=== PATIENT | male | born 1995 | race African-American/Black ===

== ENCOUNTER 2016-12-13 10:31 | Inpatient (IN) | payer SELFPAY ==
[2016-12-13] MEDS ORDERED: HYDROmorphone 1 MG/ML Syringe IVPUSH ONE (10:37)
[2016-12-13] MEDS ORDERED: Metoclopramide 10 MG/2 ML SDV IVPUSH ONE (10:37)
--- NOTE | 2016-12-13 10:44 | EDM.PDOC ---
ED HPI GENERAL MEDICAL PROBLEM - General Chief Complaint: Trauma Stated Complaint: FALL Time Seen by Provider: 12/13/16 10:37 Source of Information: Reports: Patient History Limitations: Reports: No Limitations - History of Present Illness INITIAL COMMENTS - FREE TEXT/NARRATIVE: 21-year-old male of -[place] ancestry is brought to the ED per private vehicle i.e. a suburban. 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 Unable to get out of the vehicle on his own volition. He was therefore aided by several nursing staff and myself. He was seen called in the vehicle. Trauma alert was called. Patient is complaining of severe pain in his right upper extremity and particularly the right wrist area. Planes in his pain in his neck and upper back. For a while he states he could not feel his right upper extremity but he can feel it when he was pinched. Primary exam reveals no obvious open wounds to the head or neck. No injuries to the oropharynx tongue or teeth. C-collar is in place will be left on until C-spine cleared by CT. He has pain over the right before meals joint proximal humerus and an obvious deformity of his distal right radius and ulna. A Colles' fracture. No apparent injuries to the left upper extremity were identified.Abdomen is benign chest shows good air entry equal bilaterally with no obvious palpable rib deformities or subcutaneous emphysema. Benign abdomen exam. Full range of motion knees hips and pelvis is intact. Plan normal saline 150 mils per hour. Dilaudid 1 mg IV and Reglan 10 mg IV initially for pain management. Patient will have CT head neck thoracic and lumbar spine CT chest abdomen pelvis with contrast. X-rays of the right shoulder humerus forearm and wrist to be obtained. Routine labs CBC, CMP Onset: Today Onset Date: 12/13/16 Onset Time: 10:00 Duration: Minutes: Location: Reports: Head, Neck, Chest, Back, Upper Extremity, Right (Shoulder upper humerus and wrist.) Quality: Reports: Throbbing, Other Severity: Severe (Pain with any movement) Improves with: Reports: Rest Worsens with: Reports: Movement Context: Reports: Other (Work-related injury.He fell off a roof approximately 12 feet of ground.). Denies: Activity, Exercise, Lifting, Sick Contact, Trauma Associated Symptoms: Reports: Chest Pain. Denies: Confusion, Cough, cough w sputum, Diaphoresis, Fever/Chills, Headaches, Loss of Appetite, Malaise, Nausea/ Vomiting, Rash, Seizure, Shortness of Breath, Syncope, Weakness Treatments MUSIC MINISTRIES DIRECTOR: Reports: Other (see below) (None.) Bilateral Arm Pain Score (Numeric/FACES): 10 Middle Back Pain Score (Numeric/FACES): 10 - Related Data Allergies Allergy/AdvReac Type Severity Reaction Status Date / Time No Known Allergies Allergy Verified 12/13/16 11:23 Home Meds: Home Meds . [No Known Home Meds] 12/13/16 [History] Past Medical History Respiratory History: Reports: Asthma Social & Family History - Living Situation & Occupation Occupation: Employed Review of Systems - Review of Systems Review Of Systems: See Below Constitutional: Denies: Chills, Diaphoresis, Fever, Weakness, Other Eyes: Reports: No Symptoms Ears: Reports: No Symptoms Nose: Reports: No Symptoms Mouth/Throat: Reports: No Symptoms Respiratory: Reports: No Symptoms Cardiovascular: Reports: No Symptoms GI/Abdominal: Reports: No Symptoms Genitourinary: Reports: No Symptoms Musculoskeletal: Reports: Neck Pain, Back Pain (Thoracic back pain), Other ( Severe pain right wrist mild pain right shoulder) Skin: Reports: No Symptoms Neurological: Reports: Headache Psychiatric: Reports: No Symptoms ED EXAM, GENERAL - Physical Exam Exam: See Below Exam Limited By: Uncooperative (Uncooperative due to the severity of the pain that he's experiencing.) General Appearance: Alert, Moderate Distress Eye Exam: Bilateral Eye: Normal Inspection (Note face has several areas of sawdust attached to it.) Throat/Mouth: Normal Inspection, Normal Lips, Normal Teeth, Normal Oropharynx, Other Head: Atraumatic (No evidence of bite injury to the tongue.), Normocephalic, Other (Pain to palpation of the exceptional scalp without palpable hematoma.) Neck: Other (C-collar was placed in the vehicle before he brought him into the ED and therefore was not examined. He will remain in place until CT CT clears his spine.) Respiratory/Chest: Lungs Clear, Normal Breath Sounds (Mild tachypnea), Respiratory Distress, Other (No palpable deformities of his ribs sternum. There is no subcutaneous emphysema). No: Crackles, Rales, Rhonchi, Retractions Cardiovascular: Normal Peripheral Pulses, Regular Rate, Rhythm, No Edema, No Gallop, No Murmur Peripheral Pulses: 3+: Radial (L), Radial (R), Posterior Tibial (L), Posterior Tibial (R), Dorsalis Pedis (L), Dorsalis Pedis (R) GI/Abdominal: Soft, Non-Tender, No Organomegaly, No Distention, No Abnormal Bruit, No Mass Back Exam: Normal Inspection, Decreased Range of Motion, Other (Pain in the mid and upper thoracic spine.). No: Full Range of Motion, CVA Tenderness (L), CVA Tenderness (R) Extremities: Other (Obvious deformity of his distal right radius and ulna i.e. Colles' fracture. Has some pain at the distal left wrist as well. But no obvious deformity. Pain on palpation proximal right humerus and before meals joint area. Has full unopposed range of motion of both hips knees and ankles with no lower extremity injuries evident.) Neurological: Alert, Oriented, CN II-XII Intact, Normal Cognition, Other ( Patient stood outside of the vehicle and did sit on the gurney.) Psychiatric: Anxious, Other Skin Exam: Warm, Dry (In a lot of pain.), Intact, Normal Color, No Rash ED TRAUMA PROCEDURES - Joint Reduction Site: Other (Right wrist) Sedation: Conscious Cedation (HOUSEKEEPING DIRECTOR providing propofol for sedation.) Local Anesthesia - Bupivicaine (Marcaine): 0.5% Plain (8 mils instilled to provide hematoma block.) Local Anesthetic Volume: Other (80 mL) Pre-Procedure NV Status: Normal Post-Procedure NV Status: Normal Technique: Traction/Counter Traction (Utilize the Luxembourg[place] fingertrap to provide traction and ability to reduce the fracture to length.) Number of Attempts: 2 Post-Reduction Imaging: Acceptably Reduced Joint Reduction Complications: No Course - Vital Signs Last Recorded V/S: Last Vital Signs Temp 36.2 C 12/13/16 11:23 Pulse 61 12/13/16 12:29 Resp 17 12/13/16 13:07 BP 130/78 12/13/16 12:29 Pulse Ox 97 12/13/16 13:07 - Orders/Labs/Meds Orders: Active Orders 24 hr Category Date Time Status Forearm 2V Rt [CR] Stat Exams 12/13/16 10:43 Taken Hand Comp Min 3V Rt [CR] Stat Exams 12/13/16 13:47 Taken Humerus Rt [CR] Stat Exams 12/13/16 10:43 Taken Shoulder Comp Rt [CR] Stat Exams 12/13/16 10:41 Taken Wrist 2V Rt [CR] Stat Exams 12/13/16 13:46 Taken Wrist Comp Min 3V Lt [CR] Stat Exams 12/13/16 11:02 Taken Wrist Comp Min 3V Rt [CR] Stat Exams 12/13/16 10:42 Taken ABO/RH TYPE [BBK] Stat Lab 12/13/16 10:37 Results PATIENT RETYPE [BBK] Stat Lab 12/13/16 10:37 Results URINALYSIS W/MICROSCOPIC [UA W/MICROSCOPIC] [URIN] Stat Lab 12/13/16 10:38 Uncollected Sodium Chloride 0.9% [Normal Saline] 1,000 ml Med 12/13/16 10:45 Active IV ASDIRECTED Sodium Chloride 0.9% [Saline Flush] Med 12/13/16 10:49 Active 10 ml FLUSH ONETIME PRN Medication Orders Sodium Chloride (Normal Saline) 1,000 mls @ 150 mls/hr IV ASDIRECTED HOLLY Last Admin: 12/13/16 10:47 Dose: 150 mls/hr Sodium Chloride (Saline Flush) 10 ml FLUSH ONETIME PRN PRN Reason: IV FLUSH Last Admin: 12/13/16 11:04 Dose: 10 ml Labs: Laboratory Tests 12/13/16 12/13/16 12/13/16 Range/Units 10:37 10:37 10:37 WBC 11.19 H (4.23-9.07) K/mm3 RBC 4.73 (4.63-6.08) M/mm3 Hgb 14.7 (13.7-17.5) gm/L Hct 42.5 (40.1-51.0) % MCV 89.9 (79.0-92.2) fl MCH 31.1 (25.7-32.2) pg MCHC 34.6 (32.2-35.5) g/dl RDW Std Deviation 41.7 (35.1-43.9) fL Plt Count 293 (163-337) K/mm3 MPV 10.5 (9.4-12.3) fl Neutrophils % (Manual) 47 (40-60) % Band Neutrophils % 1 (0-10) % Lymphocytes % (Manual) 46 H (20-40) % Atypical Lymphs % 2 % Monocytes % (Manual) 4 (2-10) % Eosinophils % (Manual) 0 L (0.8-7.0) % Basophils % (Manual) 0 L (0.2-1.2) Platelet Estimate Adequate RBC Morph Comment Normal Sodium 140 (136-145) mEq/L Potassium 3.0 L (3.5-5.1) mEq/L Chloride 104 (98-107) mEq/L Carbon Dioxide 26 (21-32) mEq/L Anion Gap 13.0 (5-15) BUN 18 (7-18) mg/dL Creatinine 1.3 (0.7-1.3) mg/dL Est Cr Clr Drug Dosing 85.05 mL/min Estimated GFR (MDRD) > 60 (>60) mL/min BUN/Creatinine Ratio 13.8 L (14-18) Glucose 149 H (74-106) mg/dL Calcium 8.5 (8.5-10.1) mg/dL Total Bilirubin 0.6 (0.2-1.0) mg/dL AST 107 H (15-37) U/L ALT 69 H (16-63) U/L Alkaline Phosphatase 80 (46-116) U/L Total Protein 7.7 (6.4-8.2) g/dl Albumin 4.0 (3.4-5.0) g/dl Globulin 3.7 gm/dL Albumin/Globulin Ratio 1.1 (1-2) Blood Type O POSITIVE Meds: Medications Generic Name Dose Route Start Last Admin Trade Name Freq PRN Reason Stop Dose Admin Sodium Chloride 1,000 mls @ 150 mls/hr 12/13/16 10:45 12/13/16 10:47 Normal Saline IV 150 mls/hr ASDIRECTED HOLLY Administration Sodium Chloride 10 ml 12/13/16 10:49 12/13/16 11:04 Saline Flush FLUSH 10 ml ONETIME PRN Administration IV FLUSH Discontinued Medications Generic Name Dose Route Start Last Admin Trade Name Freq PRN Reason Stop Dose Admin Bupivacaine HCl 10 ml 12/13/16 13:11 12/13/16 13:55 Sensorcaine-Mpf 0.5% INJECT 12/13/16 13:12 10 ml ONETIME ONE Administration Fentanyl Confirm 12/13/16 13:38 Sublimaze Administered 12/13/16 13:39 Dose 250 mcg .ROUTE .STK-MED ONE Hydromorphone HCl 1 mg 12/13/16 10:37 12/13/16 10:46 Dilaudid IVPUSH 12/13/16 10:38 1 mg ONETIME ONE Administration Hydromorphone HCl 0.5 mg 12/13/16 11:30 12/13/16 11:40 Dilaudid IVPUSH 12/13/16 11:31 0.5 mg ONETIME ONE Administration Hydromorphone HCl 0.5 mg 12/13/16 12:20 12/13/16 12:27 Dilaudid IVPUSH 12/13/16 12:21 0.5 mg ONETIME ONE Administration Iopamidol 125 ml 12/13/16 10:49 12/13/16 11:04 Isovue-300 (61%) IVPUSH 12/13/16 10:50 125 ml ONETIME ONE Administration Metoclopramide HCl 10 mg 12/13/16 10:37 12/13/16 10:44 Reglan IVPUSH 12/13/16 10:38 10 mg ONETIME ONE Administration Midazolam HCl Confirm 12/13/16 13:42 Versed 1 Mg/Ml Administered 12/13/16 13:43 Dose 2 mg .ROUTE .STK-MED ONE - Radiology Interpretation Free Text/Narrative:: 21 year old male involved in work-related injury this morning. He slipped and fell off a roof and fell about 12 feet to the ground. It's unclear if there was a loss of consciousness. Patient is somewhat uncooperative in terms of relating information because of the pain he is experiencing. He has some pain at palpation of his occipital scalp c-collar was placed in the vehicle before removed him from the vehicle. Trauma alert was called. He has obvious deformity of the distal right radius and ulna. Some pain in his right before meals joint and proximal right humerus. Some pain in his left wrist. No obvious deformities or injuries to the chest abdomen pelvis or lower extremities. Plan CT head cervical spine thoracic spine lumbar spine chest abdomen pelvis with contrast. Routine labs are collected. And Dilaudid 1 mg IV for pain relief with Reglan 10 mg IV as well. - Re-Assessments/Exams Free Text/Narrative Re-Assessment/Exam: 12/13/16 11:24 CT head is within normal limits showing no fractures or intracranial bleeding or mass effect. He does have fracture of the right maxillary sinus in 2 locations. There is fluid and mucosal thickening seen in both maxillary sinuses worse on the right side. There is a mildly displaced fracture within the posterior lateral wall of the right maxillary sinus in inward displacement of the fractured fragment. Fracture also noted within the anterior aspect of the inferior wall of the right maxillary sinus. CT cervical spine thoracic spine and lumbar spine are all normal without any fractures or deformities. CT chest reveals minimal pneumothoraces at the apices. These would be less than 1% never seen on chest x-ray. CT of the abdomen as radiologist identified possible small tear along the falx inferiorly suggesting a grade 1's laceration of the liver. The remainder of the CT of the abdomen and pelvis was within normal limits. Awaiting long bone x-rays. C-collar will be removed at this time. 12/13/16 11:35 x-rays of his right wrist reveal a comminuted shortened fracture of the distal radius and avulsion of the ulnar styloid process. This will require surgical management. X-rays of the remainder the forearm the right humerus and shoulder appear normal. Awaiting views of his left wrist. 12/13/16 12:00: X-rays of the left wrist also reveal a undisplaced fracture across the distal left radius. Small avulsion fracture off the ulnar styloid process as well. Case discussed with Dr. Rajani parnell who will attend him in the ED from the department of orthopedic surgery. Case discussed with trauma surgeon Dr. Buchanan patient is to be admitted to the intensive care unit for close observation continuous pulse oximetry etc. Question is whether he is going to require general surgery to reduce his fractured right wrist. He therefore is at slight risk of developing further problems with pneumothorax with positive pressure ventilation. 12/13/16 12:[address] Neal orthopedic surgeon. Left wrist needs a volar splint the right we will try and reduce with knees fingertrap and weights. This may provide a nonoperative intervention for him. Otherwise Dr. Neal will see him in clinic in a week and could operate at that time if so needed. 12/13/16 13:07 patient to be admitted to the intensive care unit under the care of Dr. Buchanan. Bridge orders were written. He will need a referral to maxillofacial surgeon such as Dr. Shon Gandhi at [facility] in [place] in about a week's time to address his right maxillary fractures. I suspect a nonoperative intervention will likely likely be the option. There is one piece of the anterior wall that is shooting into the sinus. I will call HOUSEKEEPING DIRECTOR to help facilitate reduction of his right wrist with aid of the chin [place]bourgish fingertrap. I will do a hematoma block using Marcaine 0.5% to his right wrist. 12/13/16 13:49 HOUSEKEEPING DIRECTOR provided propofol for conscious sedation. Utilization of hematoma block using 0.5 more percent Marcaine 8 mils instilled both volarly and dorsally in total. Trap machine utilized to provide weight and alignment for reduction. Placed in volar Ortho-Glass splint following the procedure and wrapped with 3 inch and 4 inch Asher wrap. Postreduction films to be obtained of the wrist and his dorsal hand as there is increasing swelling in the distribution of the third metacarpal since his arrival here. 12/13/16 13:25: Postreduction films of the right wrist reveal a return to length and nearly anatomical alignment of the right distal radius. X-ray of the hand was done to rule out a metacarpal fracture and none was found. As the patient recovers from anesthetic he will be admitted to the intensive care unit. Dr. Neal did stop by and indicated he would see him in clinic in a week's time. He felt he would be more suitable at that time if he needed intraoperative intervention. Bridge orders written for admission to the intensive care unit and Dr. Buchanan will see him later this afternoon in the ICU. 12/13/16 14:50 in regards to his right maxillary facial sinus fractures he should be placed on oral antibiotic such as cephalexin for the next week to 10 days until follow-up with maxillofacial surgeon to prevent secondary infection in the bone. Was given a gram of Ancef upon admission to the ICU Departure - Departure Time of Disposition: 14:46 Disposition: Admitted As Inpatient 64 Condition: Fair Clinical Impression: Bilateral pneumothoraces Colles' fracture of right radius, initial encounter for closed fracture Qualifiers: Encounter type: initial encounter Qualified Code(s): S52.531A - Colles' fracture of right radius, initial encounter for closed fracture Fracture of radius, distal, left, closed Qualifiers: Encounter type: initial encounter Fracture morphology: other extra-articular Qualified Code(s): S52.552A - Other extraarticular fracture of lower end of left radius, initial encounter for closed fracture Contusion of liver, closed Qualifiers: Encounter type: initial encounter Qualified Code(s): S36.112A - Contusion of liver, initial encounter Closed fracture of maxillary sinus Qualifiers: Encounter type: initial encounter Qualified Code(s): S02.401A - Maxillary fracture, unspecified side, initial encounter for closed fracture - Discharge Information - My Orders Last 24 Hours: My Active Orders 12/13/16 10:37 ABO/RH TYPE [BBK] Stat PATIENT RETYPE [BBK] Stat 12/13/16 10:38 URINALYSIS W/MICROSCOPIC [UA W/MICROSCOPIC] [URIN] Stat 12/13/16 10:41 Shoulder Comp Rt [CR] Stat 12/13/16 10:42 Wrist Comp Min 3V Rt [CR] Stat 12/13/16 10:43 Forearm 2V Rt [CR] Stat Humerus Rt [CR] Stat 12/13/16 10:45 Sodium Chloride 0.9% [Normal Saline] 1,000 ml IV ASDIRECTED 12/13/16 10:49 Sodium Chloride 0.9% [Saline Flush] 10 ml FLUSH ONETIME PRN 12/13/16 11:02 Wrist Comp Min 3V Lt [CR] Stat 12/13/16 13:46 Wrist 2V Rt [CR] Stat 12/13/16 13:47 Hand Comp Min 3V Rt [CR] Stat - Assessment/Plan Last 24 Hours: My Active Orders 12/13/16 10:37 ABO/RH TYPE [BBK] Stat PATIENT RETYPE [BBK] Stat 12/13/16 10:38 URINALYSIS W/MICROSCOPIC [UA W/MICROSCOPIC] [URIN] Stat 12/13/16 10:41 Shoulder Comp Rt [CR] Stat 12/13/16 10:42 Wrist Comp Min 3V Rt [CR] Stat 12/13/16 10:43 Forearm 2V Rt [CR] Stat Humerus Rt [CR] Stat 12/13/16 10:45 Sodium Chloride 0.9% [Normal Saline] 1,000 ml IV ASDIRECTED 12/13/16 10:49 Sodium Chloride 0.9% [Saline Flush] 10 ml FLUSH ONETIME PRN 12/13/16 11:02 Wrist Comp Min 3V Lt [CR] Stat 12/13/16 13:46 Wrist 2V Rt [CR] Stat 12/13/16 13:47 Hand Comp Min 3V Rt [CR] Stat
[2016-12-13] MEDS ORDERED: Sodium Chloride 0.9% 1,000 ML IV SCH ×2 (10:45→16:00)
[2016-12-13] MEDS ORDERED: Iopamidol 612 MG/ML 150 ML Bottle IVPUSH ONE (10:49)
[2016-12-13] MEDS ORDERED: Sodium Chloride 0.9% 10 ML Syringe FLUSH PRN (10:49)
--- NOTE | 2016-12-13 11:26 | CT ---
Head CT Technique: Multiple axial sections were obtained through the brain. Intravenous contrast was not utilized. Comparison: No previous study. Findings: Ventricles along the basal cisterns and sulci over the convexities are within normal limits for the patient's age. No abnormal parenchymal densities are seen. No evidence of intracranial hemorrhage. No midline shift or mass effect is seen. Bone window settings were reviewed which shows a mildly displaced fracture within the posterolateral wall of the right maxillary sinus with inward displacement of a fracture fragment. Fluid and mucosal thickening is seen within the right maxillary sinus. Small amount of mucosal thickening and fluid is seen within the left maxillary sinus. Fracture also noted within the anterior aspect of the inferior wall of the right maxillary sinus. No additional fracture is appreciated within the visualized facial bones. Mild mucosal thickening is noted within the ethmoid sinuses. No acute calvarial abnormality is appreciated. Impression: 1. Fracture of the right maxillary sinus in 2 locations. Fluid and mucosal thickening is seen within both maxillary sinuses which is worse on the right side. Minimal mucosal thickening is seen within the ethmoid sinuses. 2. No acute calvarial abnormality is seen. No acute intracranial abnormality is seen. Diagnostic code #3
[2016-12-13] MEDS ORDERED: HYDROmorphone 0.5 MG/0.5 ML Syringe IVPUSH ONE ×2 (11:30→12:20)
--- NOTE | 2016-12-13 11:30 | CT ---
CT cervical spine Technique: Multiple axial sections were obtained from above C1 inferiorly to the bottom of T2. Reconstructed sagittal and coronal images were reviewed. Findings: Vertebral body heights and disc spaces are maintained. Mastoid sinuses and middle ear cavities are clear. Posterior skull base is intact. Vertebral bodies and posterior arches show no fracture. No bony central or bony neural foraminal is seen. No abnormal subluxation is seen on the reconstructed sagittal image. Minimal calcification is seen off the anterior and inferior endplate of C5 believed to represent minimal detached spur which is likely chronic. Impression: 1. Incidental finding. Nothing acute is appreciated on CT study of the cervical spine. Diagnostic code #2
--- NOTE | 2016-12-13 11:53 | CT ---
CT thoracic spine Technique: Multiple axial sections through the thoracic spine were obtained. Reconstructed sagittal and coronal images were reviewed. Findings: Vertebral body heights and disc spaces are maintained. Vertebral bodies and posterior arches are intact. No fracture is seen. No bony central or bony neural foraminal stenosis is seen. Visualized portions of the thoracic spine appear unremarkable. Impression: 1. Nothing acute is identified on CT study of the thoracic spine. Diagnostic code #1
--- NOTE | 2016-12-13 11:53 | CT ---
CT chest Technique: Multiple axial sections through the chest were obtained. Intravenous contrast was utilized. Artifact noted from the patient's arms not being above the field of view. No pericardial thickening is seen. Soft tissue density noted within the superior mediastinum believed to represent normal residual thymic tissue. No mediastinal or hilar abnormalities are appreciated. Minimal pleural air seen along the right lateral chest possibly due to very minimal pneumothorax. No rib fracture is appreciated. Slight parenchymal density noted near the minor fissure on the right side either due to slight pulmonary contusion or atelectasis. Lungs otherwise are clear. Impression: 1. Possible minimal pneumothorax within the right mid and lateral chest. 2. Slight increased density within the right middle lobe near the minor fissure either due to minimal pulmonary contusion or atelectasis. 3. No additional abnormality is identified on CT study of the chest. Details are diminished due to the patient's arms being not raised. Diagnostic code #5 CT abdomen and pelvis Technique: Multiple axial sections were obtained from above the dome of the diaphragm inferiorly through the pubic symphysis. Intravenous contrast was utilized. No oral contrast has been given. Comparison: No previous study. Findings: Artifact is noted from the patient's arms within the upper abdomen. Vague low density area is seen near the ligamentum teres fissure. Difficult to exclude very minimal liver injury (grade 1). Spleen appears within normal limits. Adrenal glands show no nodule. Kidneys show symmetric contrast enhancement without discrete abnormality. Pancreas appears within normal limits. Aorta shows no aneurysmal dilatation. No retroperitoneal adenopathy or mesenteric abnormalities are seen. No pelvic mass or adenopathy is seen. Delayed images were obtained through the bladder which shows contrast within the distal ureters and bladder. No contrast extravasation is seen. Bone window settings were reviewed which shows no discrete pelvic fracture. Impression: 1. Detail is diminished due to the patient's arms affecting mostly the upper abdomen. 2. Vague low density area near the ligamentum teres fissure possibly due to minimal liver injury (grade 1). 3. No additional abnormality is definitely appreciated. Diagnostic code #2
--- NOTE | 2016-12-13 12:43 | CT ---
CT lumbar spine Technique: Multiple axial sections were obtained through the lumbar spine. Reconstructed sagittal and coronal images were reviewed. Findings: Vertebral body heights and disc spaces are maintained. No fracture is identified. No bony central or bony neural foraminal stenosis is seen. No traumatic disc herniation is seen. Impression: 1. No abnormality is identified on CT study of the lumbar spine. Diagnostic code #1
[2016-12-13] MEDS ORDERED: Propofol 200 MG/20 ML SDV ONE (13:00)
--- NOTE | 2016-12-13 13:03 | PCM.PREANE ---
Preanesthetic Assessment - Procedure Proposed Procedure: Bilateral Wrist reductions in ER - Anesthesia/Transfusion/Family Hx Anesthesia History: No Prior Anesthesia Family History of Anesthesia Reaction: No Transfusion History: No Prior Transfusion(s) - Review of Systems General: Chills (since accident) Pulmonary: No Symptoms Cardiovascular: No Symptoms Gastrointestinal: No symptoms Neurological: No Symptoms Other: Reports: Easy Bleeding (easy bleeding of nose after too much sun exposure ) - Physical Assessment NPO Status Date: 12/13/16 NPO Status Time: 06:45 O2 Sat by Pulse Oximetry: 97 Respiratory Rate: 17 Vital Signs: Last Vital Signs Temp 36.2 C 12/13/16 11:23 Pulse 61 12/13/16 12:29 Resp 17 12/13/16 12:29 BP 130/78 12/13/16 12:29 Pulse Ox 97 12/13/16 12:29 Height: 1.8 m Weight: 68.039 kg ASA Class: 2E Mental Status: Other (oriented x 3 but sedate after pain meds) Airway Class: Mallampati = 3 Dentition: Reports: Normal Dentition Thyro-Mental Finger Breadths: 3 Mouth Opening Finger Breadths: 2 ROM/Head Extension: Full Lungs: Clear to auscultation, Normal respiratory effort Cardiovascular: Regular Rate, Regular Rhythm, No Murmurs - Lab Values: Laboratory Last Values WBC 11.19 K/mm3 (4.23-9.07) H 12/13/16 10:37 RBC 4.73 M/mm3 (4.63-6.08) 12/13/16 10:37 Hgb 14.7 gm/L (13.7-17.5) 12/13/16 10:37 Hct 42.5 % (40.1-51.0) 12/13/16 10:37 MCV 89.9 fl (79.0-92.2) 12/13/16 10:37 MCH 31.1 pg (25.7-32.2) 12/13/16 10:37 MCHC 34.6 g/dl (32.2-35.5) 12/13/16 10:37 RDW Std Deviation 41.7 fL (35.1-43.9) 12/13/16 10:37 Plt Count 293 K/mm3 (163-337) 12/13/16 10:37 MPV 10.5 fl (9.4-12.3) 12/13/16 10:37 Neutrophils % (Manual) 47 % (40-60) 12/13/16 10:37 Band Neutrophils % 1 % (0-10) 12/13/16 10:37 Lymphocytes % (Manual) 46 % (20-40) H 12/13/16 10:37 Atypical Lymphs % 2 % 12/13/16 10:37 Monocytes % (Manual) 4 % (2-10) 12/13/16 10:37 Eosinophils % (Manual) 0 % (0.8-7.0) L 12/13/16 10:37 Basophils % (Manual) 0 (0.2-1.2) L 12/13/16 10:37 Platelet Estimate Adequate 12/13/16 10:37 RBC Morph Comment Normal 12/13/16 10:37 Sodium 140 mEq/L (136-145) 12/13/16 10:37 Potassium 3.0 mEq/L (3.5-5.1) L 12/13/16 10:37 Chloride 104 mEq/L (98-107) 12/13/16 10:37 Carbon Dioxide 26 mEq/L (21-32) 12/13/16 10:37 Anion Gap 13.0 (5-15) 12/13/16 10:37 BUN 18 mg/dL (7-18) 12/13/16 10:37 Creatinine 1.3 mg/dL (0.7-1.3) 12/13/16 10:37 Est Cr Clr Drug Dosing 85.05 mL/min 12/13/16 10:37 Estimated GFR (MDRD) > 60 mL/min (>60) 12/13/16 10:37 BUN/Creatinine Ratio 13.8 (14-18) L 12/13/16 10:37 Glucose 149 mg/dL (74-106) H 12/13/16 10:37 Calcium 8.5 mg/dL (8.5-10.1) 12/13/16 10:37 Total Bilirubin 0.6 mg/dL (0.2-1.0) 12/13/16 10:37 AST 107 U/L (15-37) H 12/13/16 10:37 ALT 69 U/L (16-63) H 12/13/16 10:37 Alkaline Phosphatase 80 U/L (46-116) 12/13/16 10:37 Total Protein 7.7 g/dl (6.4-8.2) 12/13/16 10:37 Albumin 4.0 g/dl (3.4-5.0) 12/13/16 10:37 Globulin 3.7 gm/dL 12/13/16 10:37 Albumin/Globulin Ratio 1.1 (1-2) 12/13/16 10:37 Blood Type O POSITIVE 12/13/16 10:37 - Allergies Allergies/Adverse Reactions: Allergies Allergy/AdvReac Type Severity Reaction Status Date / Time No Known Allergies Allergy Verified 12/13/16 11:23 - Acknowledgements Anesthesia Type Planned: MAC Pt an Appropriate Candidate for the Planned Anesthesia: Yes Alternatives and Risks of Anesthesia Discussed w Pt/Guardian: Yes Pt/Guardian Understands and Agrees with Anesthesia Plan: Yes PreAnesthesia Questionnaire Respiratory History: Reports: Asthma - SUBSTANCE USE Smoking Status *Q: Never Smoker Tobacco Use Within Last Twelve Months: No Second Hand Smoke Exposure: No Days Per Week of Alcohol Use: 0 Recreational Drug Use History: No - HOME MEDS Home Medications: Home Meds . [No Known Home Meds] 12/13/16 [History] - CURRENT (IN HOUSE) MEDS Current Meds: Current Medications Sodium Chloride (Normal Saline) 1,000 mls @ 150 mls/hr IV ASDIRECTED [facility] Last Admin: 12/13/16 10:47 Dose: 150 mls/hr Sodium Chloride (Saline Flush) 10 ml FLUSH ONETIME PRN PRN Reason: IV FLUSH Last Admin: 12/13/16 11:04 Dose: 10 ml Discontinued Medications Hydromorphone HCl (Dilaudid) 1 mg IVPUSH ONETIME ONE Stop: 12/13/16 10:38 Last Admin: 12/13/16 10:46 Dose: 1 mg Hydromorphone HCl (Dilaudid) 0.5 mg IVPUSH ONETIME ONE Stop: 12/13/16 11:31 Last Admin: 12/13/16 11:40 Dose: 0.5 mg Hydromorphone HCl (Dilaudid) 0.5 mg IVPUSH ONETIME ONE Stop: 12/13/16 12:21 Last Admin: 12/13/16 12:27 Dose: 0.5 mg Iopamidol (Isovue-300 (61%)) 125 ml IVPUSH ONETIME ONE Stop: 12/13/16 10:50 Last Admin: 12/13/16 11:04 Dose: 125 ml Metoclopramide HCl (Reglan) 10 mg IVPUSH ONETIME ONE Stop: 12/13/16 10:38 Last Admin: 12/13/16 10:44 Dose: 10 mg
[2016-12-13] MEDS ORDERED: Bupivacaine 0.5% 10 ML SDV INJECT ONE (13:11)
[2016-12-13] MEDS ORDERED: fentaNYL 250 MCG/5 ML SDV ONE (13:38)
[2016-12-13] MEDS ORDERED: Midazolam 1 MG/ML 2 ML SDV ONE (13:42)
[2016-12-13] MEDS ORDERED: ceFAZolin 1 GM in Premix Bag 1 BAG IV ONE ×2 (14:50→17:00)
--- NOTE | 2016-12-13 15:09 | PCM.HP ---
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 He fell approximately 12 feet onto concrete without LOC. He was brought by rescue to the emergency room hemodynamically stable and placed in a trauma alert status. He was seen and evaluated by ED staff. Imaging was performed. He was found to have a right maxillary sinus fracture along with a minimal right-sided pneumothorax with a possible right middle lobe contusion. There may be a grade 1 hepatic injury. He also had bilateral wrist injuries as well. Orthopedic surgery and I were consulted. Currently he is slightly sedated after having IV propofol given for his close reduction and cast placement of both wrists. Nevertheless he notes lower neck pain. Right facial pain and mild to moderate wrist pain. He denies shortness of breath as well as abdominal pain. He did say he felt slightly chilled. Onset of Symptoms: Reports: Today Bilateral Arm Pain Score (Numeric/FACES): 10 Middle Back Pain Score (Numeric/FACES): 10 - Related Data Allergies/Adverse Reactions: Allergies Allergy/AdvReac Type Severity Reaction Status Date / Time No Known Allergies Allergy Verified 12/13/16 11:23 Home Medications: Home Meds . [No Known Home Meds] 12/13/16 [History] Past Medical History Respiratory History: Reports: Asthma Musculoskeletal History: Reports: Other (See Below) (Prior arm and lower extremity fractures.) Social & Family History - Tobacco Use Smoking Status *Q: Never Smoker Second Hand Smoke Exposure: No - Caffeine Use Caffeine Use: Reports: None - Alcohol Use Days Per Week of Alcohol Use: 0 - Recreational Drug Use Recreational Drug Use: No - Living Situation & Occupation Living situation: Reports: Occupation: Employed H&P Review of Systems - Review of Systems: Review Of Systems: See Below General: Reports: Other (Right facial pain) Musculoskeletal: Reports: Neck Pain, Arm Pain, Joint Pain Exam - Exam Exam: See Below - Vital Signs Vital Signs: Last Vital Signs Temp 36.2 C 12/13/16 11:23 Pulse 61 12/13/16 12:29 Resp 17 12/13/16 13:07 BP 130/78 12/13/16 12:29 Pulse Ox 97 12/13/16 13:07 Weight: 68.039 kg - Exam Quality Assessment: Supplemental Oxygen General: Sedated, Lethargic HEENT: Conjunctiva Clear, Hearing Intact, Mucosa Moist & [place], Other (Right malar swelling with a superficial skin abrasion) Neck: Supple, Trachea Midline, Other (C7 point tenderness) Lungs: Decreased Breath Sounds (Left chest), Crackles (Upper right chest) Cardiovascular: Regular Rate, Regular Rhythm, Normal S1, Normal S2 GI/Abdominal Exam: Normal Bowel Sounds, Soft, Non-Tender (Male) Exam: Deferred Rectal (Males) Exam: Deferred Back Exam: Normal Inspection Extremities: Normal Inspection, Non-Tender, Other (Bilateral wrist casts) Skin: Warm, Dry, Intact Neuro Extensive - Mental Status: Slow Response to Commands Psychiatric: Normal Affect, Normal Mood - Patient Data Result Diagrams: 12/13/16 10:37 12/13/16 10:37 *Q Meaningful Use (ADM) - VTE *Q VTE Criteria *Q: - Stroke *Q Stroke Criteria *Q: - AMI *Q AMI Criteria *Q: - Problem List (1) Facial abrasion SNOMED Code(s): 589106053 ICD Code: S00.81XA - ABRASION OF OTHER PART OF HEAD, INITIAL ENCOUNTER Status: Acute Priority: Low Current Visit: Yes Onset Date: ~12/13/16 Qualifiers: Encounter type: initial encounter Qualified Code(s): S00.81XA - Abrasion of other part of head, initial encounter (2) Bilateral pneumothoraces SNOMED Code(s): 02504737 ICD Code: J93.9 - PNEUMOTHORAX, UNSPECIFIED Status: Acute Priority: Low Current Visit: Yes Onset Date: ~12/13/16 (3) Closed fracture of maxillary sinus SNOMED Code(s): 917495888, 965660096 ICD Code: S02.401A - MAXILLARY FRACTURE, UNSPECIFIED SIDE, INIT Status: Acute Priority: Medium Current Visit: Yes Onset Date: ~12/13/16 Qualifiers: Encounter type: initial encounter Qualified Code(s): S02.401A - Maxillary fracture, unspecified side, initial encounter for closed fracture (4) Colles' fracture of right radius, initial encounter for closed fracture SNOMED Code(s): 717588222 ICD Code: S52.531A - COLLES' FRACTURE OF RIGHT RADIUS, INIT FOR CLOS FX Status: Acute Priority: Medium Current Visit: Yes Qualifiers: Encounter type: initial encounter Qualified Code(s): S52.531A - Colles' fracture of right radius, initial encounter for closed fracture (5) Contusion of liver, closed SNOMED Code(s): 97870409 ICD Code: S36.112A - CONTUSION OF LIVER, INITIAL ENCOUNTER Status: Acute Priority: Low Current Visit: Yes Onset Date: ~12/13/16 Qualifiers: Encounter type: initial encounter Qualified Code(s): S36.112A - Contusion of liver, initial encounter (6) Fracture of radius, distal, left, closed SNOMED Code(s): 82806578, 789821172 ICD Code: S52.502A - UNSP FRACTURE OF THE LOWER END OF LEFT RADIUS, INIT Status: Acute Priority: Medium Current Visit: Yes Onset Date: ~12/13/16 Qualifiers: Encounter type: initial encounter Fracture morphology: other extra- articular Qualified Code(s): S52.552A - Other extraarticular fracture of lower end of left radius, initial encounter for closed fracture Problem List Initiated/Reviewed/Updated: Yes Orders Last 24hrs: Active Orders 24 hr Category Date Time Status Admission Status [Patient Status] [ADT] Routine ADT 12/13/16 14:38 Active MAGNESIUM [CHEM] Routine Lab 12/13/16 14:31 Ordered ceFAZolin [Ancef] 1 gm Med 12/13/16 14:50 Active Premix Bag 1 bag IV ONETIME Medication Orders Sodium Chloride (Normal Saline) 1,000 mls @ 150 mls/hr IV [facility] Last Admin: 12/13/16 10:47 Dose: 150 mls/hr Cefazolin Sodium/Dextrose 1 gm (/ Premix) 50 mls @ 100 mls/hr IV ONETIME ONE Stop: 12/13/16 15:19 Sodium Chloride (Saline Flush) 10 ml FLUSH ONETIME PRN PRN Reason: IV FLUSH Last Admin: 12/13/16 11:04 Dose: 10 ml Assessment/Plan Comment:: imp: Multiple fractures as described above -- all stable, and status post closed reduction by orthopedic surgery. CT pneumothorax is stable. Superficial abrasion right cheek. Questionable grade 1 liver injury at the level of the ligamentum teres. This is a stable lesion and can be observed. He has C7 point tenderness but his CT neck and CT T-spine are negative. All other imaging studies are negative. plan: Observation in a monitored setting. If stable overnight in the ICU I will transfer him to [facility] in the morning. Chest x-ray in the morning. CBC in the morning.
[2016-12-13] MEDS ORDERED: Ondansetron 4 MG/2 ML SDV IVPUSH PRN (15:42)
[2016-12-13] MEDS ORDERED: Dextrose 5%-0.9% NaCl with KCl 1,000 ML IV SCH (15:45)
[2016-12-13] MEDS ORDERED: HYDROmorphone 0.5 MG/0.5 ML Syringe IVPUSH PRN (15:57)
[2016-12-13] MEDS: Ketorolac 30 MG/ML SDV IVPUSH PRN (19:11)
[2016-12-13] MEDS: HYDROmorphone 0.5 MG/0.5 ML Syringe IVPUSH PRN ×2 (21:15→23:04)
[2016-12-14] MEDS: Sodium Chloride 0.9% 1,000 ML IV SCH ×2 (00:32→08:26)
[2016-12-14] MEDS: HYDROmorphone 0.5 MG/0.5 ML Syringe IVPUSH PRN ×2 (02:04→08:22)
[2016-12-14] MEDS: Ketorolac 30 MG/ML SDV IVPUSH PRN ×3 (06:18→21:34)
--- NOTE | 2016-12-14 08:58 | CR ---
Right hand: Three views of the right hand were obtained. Comparison: No previous hand study. Wrist fracture is again noted. No additional fracture seen within the right hand. Soft tissue swelling again noted. Impression: 1. Wrist fracture again seen. Soft tissue swelling is present. 2. Right hand exam is otherwise unremarkable. Diagnostic code #2
--- NOTE | 2016-12-14 08:58 | CR ---
Left wrist: Four views of the left wrist are obtained. Distal radial fracture is seen. Articular extension is noted. Alignment remains close to anatomic. Minimal calcification likely representing minimal avulsion fracture noted off the ulnar styloid process. Soft tissue swelling is seen. No additional bony abnormality is identified. Impression: 1. Nondisplaced distal left radial fracture with articular extension. 2. Minimal fracture within the ulnar styloid process. 3. Soft tissue swelling. Diagnostic code #3
--- NOTE | 2016-12-14 08:58 | CR ---
Right wrist: Four views of the right wrist were obtained. Comparison: No previous wrist study. Fracture identified within the distal radius. Mild posterior impaction is seen with mild dorsal tilt of the distal radial articular margin. Articular extension of the fracture line is seen. Slightly displaced fracture noted within the tip of the ulnar styloid process. Soft tissue swelling is identified. No additional abnormalities appreciated. Impression: 1. Wrist fracture as described above. Soft tissue swelling is noted. Diagnostic code #3
--- NOTE | 2016-12-14 08:58 | CR ---
Right forearm: Two views of the right forearm were obtained. Comparison: No previous study. Wrist fracture again noted as described on wrist exam. Other portions of the forearm exam appear normal. Impression: 1. Wrist fracture is again noted. 2. Other portions of the right forearm study are unremarkable. Diagnostic code #2
--- NOTE | 2016-12-14 08:58 | CR ---
Right humerus: Two views of the right humerus were obtained. Comparison: No previous study. No fracture or other abnormality is identified. Impression: 1. No abnormality is identified on two-view right humerus exam. Diagnostic code #1
--- NOTE | 2016-12-14 08:58 | CR ---
Right shoulder: Three views of the right shoulder were obtained. Comparison: No previous shoulder study. Glenohumeral joint and acromioclavicular joint appear unremarkable. No fracture or other bony abnormality is seen. Impression: 1. No abnormality is seen on three-view right shoulder study. Diagnostic code #1
--- NOTE | 2016-12-14 08:58 | CR ---
Right wrist: Two views of the right wrist were obtained. Comparison: Previous study performed earlier on the same day (11:04 AM). Fracture shows significantly improved alignment from prior exam. Radial fracture appears close to anatomic in alignment. Slightly displaced ulnar styloid process fracture is incidentally noted. Soft tissue swelling remains. Fiberglass splint is in place. Impression: 1. Reduction of previous radial fracture which is now close to anatomic in alignment. 2. Other incidental findings. Diagnostic code #3
[2016-12-14] MEDS: Acetaminophen/oxyCODONE 325-5 MG Tab PO PRN ×2 (10:07→15:06)
--- NOTE | 2016-12-14 10:41 | CR ---
Chest: Two views of the chest were obtained. Comparison: No prior chest x-ray, prior chest CT dated 12/13/16 is available. No pneumothorax is seen on the study. Heart size and mediastinum are normal. Lungs are clear. No discrete bony abnormality is seen. Impression: 1. Nothing acute is appreciated on two-view chest x-ray. Diagnostic code #1
--- NOTE | 2016-12-14 14:16 | PCM.PN ---
- General Info Date of Service: 12/14/16 Functional Status: Reports: Pain Controlled (Patient states he is having more discomfort and yesterday.), Tolerating Diet, Ambulating, Urinating - Review of Systems Pulmonary: Reports: No Symptoms Gastrointestinal: Reports: No Symptoms Genitourinary: Reports: No Symptoms - Patient Data Vitals - most recent: Last Vital Signs Temp 37.1 C 12/14/16 12:00 Pulse 68 12/13/16 20:00 Resp 18 12/14/16 12:00 BP 117/61 12/14/16 12:00 Pulse Ox 94 L 12/14/16 12:00 Weight - most recent: 72.393 kg I&O - last 24 hours: Intake & Output 12/13/16 12/14/16 12/14/16 22:59 06:59 14:59 Intake Total 1660 2528 600 Output Total 1050 600 500 Balance 610 1928 100 Lab Results last 24 hrs: Laboratory Results - last 24 hr 12/13/16 12/13/16 12/13/16 Range/Units 17:12 17:15 17:15 WBC (4.23-9.07) K/mm3 RBC (4.63-6.08) M/mm3 Hgb 13.8 (13.7-17.5) gm/L Hct 39.7 L (40.1-51.0) % MCV (79.0-92.2) fl MCH (25.7-32.2) pg MCHC (32.2-35.5) g/dl RDW Std Deviation (35.1-43.9) fL Plt Count (163-337) K/mm3 MPV (9.4-12.3) fl Neut % (Auto) (34.0-67.9) % Lymph % (Auto) (21.8-53.1) % Baker % (Auto) (5.3-12.2) % Eos % (Auto) (0.8-7.0) Baso % (Auto) (0.1-1.2) % Neut # (Auto) (1.78-5.38) K/mm3 Lymph # (Auto) (1.32-3.57) K/mm3 Baker # (Auto) (0.30-0.82) K/mm3 Eos # (Auto) (0.04-0.54) K/mm3 Baso # (Auto) (0.01-0.08) K/mm3 Sodium (136-145) mEq/L Potassium (3.5-5.1) mEq/L Chloride (98-107) mEq/L Carbon Dioxide (21-32) mEq/L Anion Gap (5-15) BUN (7-18) mg/dL Creatinine (0.7-1.3) mg/dL Est Cr Clr Drug Dosing mL/min Estimated GFR (MDRD) (>60) mL/min BUN/Creatinine Ratio (14-18) Glucose (74-106) mg/dL Calcium (8.5-10.1) mg/dL Magnesium 1.5 L (1.8-2.4) mg/dl Urine Color Light yellow (Yellow) Urine Appearance Clear (Clear) Urine pH 6.0 (5.0-8.0) Ur Specific [place] 1.020 (1.005-1.030) Urine Protein Trace H (Negative) Urine Glucose (UA) Negative (Negative) Urine Ketones 1+ H (Negative) Urine Occult Blood 3+ H (Negative) Urine Nitrite Negative (Negative) Urine Bilirubin Negative (Negative) Urine Urobilinogen 0.2 (0.2-1.0) Ur Leukocyte Esterase Negative (Negative) Urine RBC 10-20 H (0-5) /hpf Urine WBC 0-5 (0-5) /hpf Ur Epithelial Cells 0-5 (0-5) /hpf Urine Bacteria Rare (FEW) /hpf Urine Mucus Not seen (FEW) /hpf 12/14/16 12/14/16 Range/Units 05:49 05:49 WBC 9.63 H (4.23-9.07) K/mm3 RBC 4.15 L (4.63-6.08) M/mm3 Hgb 13.0 L (13.7-17.5) gm/L Hct 38.0 L (40.1-51.0) % MCV 91.6 (79.0-92.2) fl MCH 31.3 (25.7-32.2) pg MCHC 34.2 (32.2-35.5) g/dl RDW Std Deviation 43.8 (35.1-43.9) fL Plt Count 216 (163-337) K/mm3 MPV 10.6 (9.4-12.3) fl Neut % (Auto) 63.8 (34.0-67.9) % Lymph % (Auto) 22.5 (21.8-53.1) % Baker % (Auto) 13.0 H (5.3-12.2) % Eos % (Auto) 0.5 L (0.8-7.0) Baso % (Auto) 0.1 (0.1-1.2) % Neut # (Auto) 6.14 H (1.78-5.38) K/mm3 Lymph # (Auto) 2.17 (1.32-3.57) K/mm3 Baker # (Auto) 1.25 H (0.30-0.82) K/mm3 Eos # (Auto) 0.05 (0.04-0.54) K/mm3 Baso # (Auto) 0.01 (0.01-0.08) K/mm3 Sodium 140 (136-145) mEq/L Potassium 3.7 (3.5-5.1) mEq/L Chloride 105 (98-107) mEq/L Carbon Dioxide 28 (21-32) mEq/L Anion Gap 10.7 (5-15) BUN 10 (7-18) mg/dL Creatinine 1.1 (0.7-1.3) mg/dL Est Cr Clr Drug Dosing 109.69 mL/min Estimated GFR (MDRD) > 60 (>60) mL/min BUN/Creatinine Ratio 9.1 L (14-18) Glucose 101 (74-106) mg/dL Calcium 8.2 L (8.5-10.1) mg/dL Magnesium (1.8-2.4) mg/dl Urine Color (Yellow) Urine Appearance (Clear) Urine pH (5.0-8.0) Ur Specific [place] (1.005-1.030) Urine Protein (Negative) Urine Glucose (UA) (Negative) Urine Ketones (Negative) Urine Occult Blood (Negative) Urine Nitrite (Negative) Urine Bilirubin (Negative) Urine Urobilinogen (0.2-1.0) Ur Leukocyte Esterase (Negative) Urine RBC (0-5) /hpf Urine WBC (0-5) /hpf Ur Epithelial Cells (0-5) /hpf Urine Bacteria (FEW) /hpf Urine Mucus (FEW) /hpf Med Orders - Current: Current Medications Hydromorphone HCl (Dilaudid) 0.5 mg IVPUSH Q1H PRN PRN Reason: Pain Last Admin: 12/14/16 08:22 Dose: 0.5 mg Ketorolac Tromethamine (Toradol) 30 mg IVPUSH Q6H PRN PRN Reason: Pain Stop: 12/18/16 17:00 Last Admin: 12/14/16 14:05 Dose: 30 mg Ondansetron HCl (Zofran) 4 mg IVPUSH Q4H PRN PRN Reason: Nausea Last Admin: 12/13/16 16:29 Dose: 4 mg Oxycodone/Acetaminophen (Percocet 325-5 Mg) 1 - 2 tab PO Q4H PRN PRN Reason: Pain Last Admin: 12/14/16 10:07 Dose: 2 tab Sodium Chloride (Saline Flush) 10 ml FLUSH ONETIME PRN PRN Reason: IV FLUSH Last Admin: 12/13/16 11:04 Dose: 10 ml Discontinued Medications Bupivacaine HCl (Sensorcaine-Mpf 0.5%) 10 ml INJECT ONETIME ONE Stop: 12/13/16 13:12 Last Admin: 12/13/16 13:55 Dose: 10 ml Fentanyl (Sublimaze) Confirm Administered Dose 250 mcg .ROUTE .STK-MED ONE Stop: 12/13/16 13:39 Hydromorphone HCl (Dilaudid) 1 mg IVPUSH ONETIME ONE Stop: 12/13/16 10:38 Last Admin: 12/13/16 10:46 Dose: 1 mg Hydromorphone HCl (Dilaudid) 0.5 mg IVPUSH ONETIME ONE Stop: 12/13/16 11:31 Last Admin: 12/13/16 11:40 Dose: 0.5 mg Hydromorphone HCl (Dilaudid) 0.5 mg IVPUSH ONETIME ONE Stop: 12/13/16 12:21 Last Admin: 12/13/16 12:27 Dose: 0.5 mg Hydromorphone HCl (Dilaudid) 0.5 mg IVPUSH Q1H PRN PRN Reason: Pain Sodium Chloride (Normal Saline) 1,000 mls @ 150 mls/hr IV ASDIRECTED HOLLY Last Admin: 12/13/16 10:47 Dose: 150 mls/hr Cefazolin Sodium/Dextrose 1 gm (/ Premix) 50 mls @ 100 mls/hr IV ONETIME ONE Stop: 12/13/16 15:19 Potassium Chloride/Dextrose/Sod Cl (D5 Ns With 20 Meq Kcl) 1,000 mls @ 125 mls/ hr IV ASDIRECTED HOLLY Stop: 12/13/16 23:44 Last Admin: 12/13/16 16:31 Dose: 125 mls/hr Sodium Chloride (Normal Saline) 1,000 mls @ 125 mls/hr IV ASDIRECTED HOLLY Last Admin: 12/14/16 08:26 Dose: 125 mls/hr Sodium Chloride (Normal Saline) 1,000 mls @ 125 mls/hr IV ASDIRECTED HOLLY Cefazolin Sodium/Dextrose 1 gm (/ Premix) 50 mls @ 100 mls/hr IV ONETIME ONE Stop: 12/13/16 17:29 Last Admin: 12/13/16 17:30 Dose: 100 mls/hr Iopamidol (Isovue-300 (61%)) 125 ml IVPUSH ONETIME ONE Stop: 12/13/16 10:50 Last Admin: 12/13/16 11:04 Dose: 125 ml Metoclopramide HCl (Reglan) 10 mg IVPUSH ONETIME ONE Stop: 12/13/16 10:38 Last Admin: 12/13/16 10:44 Dose: 10 mg Midazolam HCl (Versed 1 Mg/Ml) Confirm Administered Dose 2 mg .ROUTE .STK-MED ONE Stop: 12/13/16 13:43 Propofol (Diprivan 20 Ml) 400 mg .ROUTE .STK-MED ONE Stop: 12/13/16 13:01 - Exam General: sedated GI/Abdominal Exam: Soft, Non-Tender - Problem List & Annotations (1) Facial abrasion SNOMED Code(s): 828680956 Code(s): S00.81XA - ABRASION OF OTHER PART OF HEAD, INITIAL ENCOUNTER Status: Acute Priority: Low Current Visit: Yes Onset Date: ~12/13/16 Qualifiers: Encounter type: initial encounter Qualified Code(s): S00.81XA - Abrasion of other part of head, initial encounter (2) Bilateral pneumothoraces SNOMED Code(s): 42988340 Code(s): J93.9 - PNEUMOTHORAX, UNSPECIFIED Status: Acute Priority: Low Current Visit: Yes Onset Date: ~12/13/16 (3) Closed fracture of maxillary sinus SNOMED Code(s): 331650384, 449401046 Code(s): S02.401A - MAXILLARY FRACTURE, UNSPECIFIED SIDE, INIT Status: Acute Priority: Medium Current Visit: Yes Onset Date: ~12/13/16 Qualifiers: Encounter type: initial encounter Qualified Code(s): S02.401A - Maxillary fracture, unspecified side, initial encounter for closed fracture (4) Colles' fracture of right radius, initial encounter for closed fracture SNOMED Code(s): 396287697 Code(s): S52.531A - COLLES' FRACTURE OF RIGHT RADIUS, INIT FOR CLOS FX Status: Acute Priority: Medium Current Visit: Yes Qualifiers: Encounter type: initial encounter Qualified Code(s): S52.531A - Colles' fracture of right radius, initial encounter for closed fracture (5) Contusion of liver, closed SNOMED Code(s): 01567070 Code(s): S36.112A - CONTUSION OF LIVER, INITIAL ENCOUNTER Status: Acute Priority: Low Current Visit: Yes Onset Date: ~12/13/16 Qualifiers: Encounter type: initial encounter Qualified Code(s): S36.112A - Contusion of liver, initial encounter (6) Fracture of radius, distal, left, closed SNOMED Code(s): 19325007, 953129197 Code(s): S52.502A - UNSP FRACTURE OF THE LOWER END OF LEFT RADIUS, INIT Status: Acute Priority: Medium Current Visit: Yes Onset Date: ~12/13/16 Qualifiers: Encounter type: initial encounter Fracture morphology: other extra- articular Qualified Code(s): S52.552A - Other extraarticular fracture of lower end of left radius, initial encounter for closed fracture - Problem List Review Problem List Initiated/Reviewed/Updated: Yes - My Orders Last 24 Hours: My Active Orders 12/13/16 15:42 Patient Status [ADT] Routine Up With Assistance [RC] ASDIRECTED HYDROmorphone [Dilaudid] 0.5 mg IVPUSH Q1H PRN Ondansetron [Zofran] 4 mg IVPUSH Q4H PRN Pulse Oximetry Continuous Monitoring [OM.PC] Routine Resuscitation Status Routine 12/13/16 15:51 Antiembolic Hose [OM.PC] Routine DVT/VTE Prophylaxis Reflex [OM.PC] Routine Pulse Oximetry Continuous Monitoring [OM.PC] Routine Sequential Compression Device [OM.PC] Routine 12/13/16 15:52 Antiembolic Devices [RC] PER UNIT ROUTINE 12/13/16 15:54 Antiembolic Hose [OM.PC] Per Unit Routine Sequential Compression Device [OM.PC] Per Unit Routine 12/13/16 17:47 Ketorolac [Toradol] 30 mg IVPUSH Q6H PRN 12/13/16 20:00 Incentive Spirometry [RT Incentive Spirometry] [RC] Q2HWA 12/14/16 09:29 Acetaminophen/oxyCODONE [Percocet 325-5 MG] 1 - 2 tab PO Q4H PRN 12/14/16 09:38 Admission Status [Patient Status] [ADT] Routine 12/14/16 09:47 OT Evaluation and Treatment [CONS] Routine PT Evaluation and Treatment [CONS] Routine 12/14/16 Lunch Regular Diet [DIET] - Assessment Assessment:: imp: Hemodynamically stable. Okay to be transferred from ICU to [facility]. Patient is having expected pain from the fall. Still titrating his IV medications. I have switched him to by mouth Percocet today. His labs are stable. His chest x-ray shows no pneumothorax or effusions. He should be ready for discharge tomorrow after another day of observation. I will keep him today because he still requires occasional IV analgesics. plan: Repeat urinalysis as he did have some red blood cells in the urine on admission and I want to see this clear. Discharge planning for tomorrow. - Plan Plan:: imp: Multiple fractures as described above -- all stable, and status post closed reduction by orthopedic surgery. CT pneumothorax is stable. Superficial abrasion right cheek. Questionable grade 1 liver injury at the level of the ligamentum teres. This is a stable lesion and can be observed. He has C7 point tenderness but his CT neck and CT T-spine are negative. All other imaging studies are negative. plan: Observation in a monitored setting. If stable overnight in the ICU I will transfer him to [facility] in the morning. Chest x-ray in the morning. CBC in the morning.
[2016-12-14] MEDS ORDERED: Cyclobenzaprine 10 MG Tab PO PRN (17:24)
[2016-12-15] MEDS: Acetaminophen/oxyCODONE 325-5 MG Tab PO PRN ×2 (03:11→09:32)
--- NOTE | 2016-12-15 08:57 | PCM.PN ---
- General Info Date of Service: 12/15/16 Admission Dx/Problem (Free Text): Admission Diagnosis/Problem Admission Diagnosis/Problem Traumatic pneumothorax Multiple soft tissue injuries with right maxillary close fracture and bilateral wrist fractures dislocations. Functional Status: Reports: Pain Controlled (He still has back pain as well as wrist pain with movement. He no longer needs Dilaudid IV but he finds that the Toradol is most helpful for the wrist pain and the Flexeril is most helpful for the back pain.), Tolerating Diet, Ambulating, Urinating - Review of Systems Musculoskeletal: Reports: Back Pain, Joint Pain (Wrist) - Patient Data Vitals - most recent: Last Vital Signs Temp 36.6 C 12/14/16 19:48 Pulse 68 12/14/16 19:47 Resp 16 12/14/16 19:47 BP 122/57 L 12/14/16 19:47 Pulse Ox 97 12/14/16 19:47 Weight - most recent: 71.713 kg I&O - last 24 hours: Intake & Output 12/14/16 12/15/16 12/15/16 22:59 06:59 14:59 Intake Total 1700 1200 Output Total 450 Balance 1700 750 Lab Results last 24 hrs: Laboratory Results - last 24 hr 12/14/16 Range/Units 17:30 Urine Color Light yellow (Yellow) Urine Appearance Clear (Clear) Urine pH 6.5 (5.0-8.0) Ur Specific [place] 1.020 (1.005-1.030) Urine Protein Negative (Negative) Urine Glucose (UA) Negative (Negative) Urine Ketones Negative (Negative) Urine Occult Blood Negative (Negative) Urine Nitrite Negative (Negative) Urine Bilirubin Negative (Negative) Urine Urobilinogen 1.0 (0.2-1.0) Ur Leukocyte Esterase Negative (Negative) Urine RBC 0-5 (0-5) /hpf Urine WBC 0-5 (0-5) /hpf Ur Epithelial Cells 0-5 (0-5) /hpf Urine Bacteria Rare (FEW) /hpf Urine Mucus Not seen (FEW) /hpf Med Orders - Current: Current Medications Cyclobenzaprine HCl (Flexeril) 10 mg PO Q8HR PRN PRN Reason: Muscle Spasm Last Admin: 12/14/16 17:30 Dose: 10 mg Hydromorphone HCl (Dilaudid) 0.5 mg IVPUSH Q1H PRN PRN Reason: Pain Last Admin: 12/14/16 08:22 Dose: 0.5 mg Ketorolac Tromethamine (Toradol) 30 mg IVPUSH Q6H PRN PRN Reason: Pain Stop: 12/18/16 17:00 Last Admin: 12/14/16 21:34 Dose: 30 mg Ondansetron HCl (Zofran) 4 mg IVPUSH Q4H PRN PRN Reason: Nausea Last Admin: 12/13/16 16:29 Dose: 4 mg Oxycodone/Acetaminophen (Percocet 325-5 Mg) 1 - 2 tab PO Q4H PRN PRN Reason: Pain Last Admin: 12/15/16 03:11 Dose: 2 tab Sodium Chloride (Saline Flush) 10 ml FLUSH ONETIME PRN PRN Reason: IV FLUSH Last Admin: 12/13/16 11:04 Dose: 10 ml Discontinued Medications Bupivacaine HCl (Sensorcaine-Mpf 0.5%) 10 ml INJECT ONETIME ONE Stop: 12/13/16 13:12 Last Admin: 12/13/16 13:55 Dose: 10 ml Fentanyl (Sublimaze) Confirm Administered Dose 250 mcg .ROUTE .STK-MED ONE Stop: 12/13/16 13:39 Hydromorphone HCl (Dilaudid) 1 mg IVPUSH ONETIME ONE Stop: 12/13/16 10:38 Last Admin: 12/13/16 10:46 Dose: 1 mg Hydromorphone HCl (Dilaudid) 0.5 mg IVPUSH ONETIME ONE Stop: 12/13/16 11:31 Last Admin: 12/13/16 11:40 Dose: 0.5 mg Hydromorphone HCl (Dilaudid) 0.5 mg IVPUSH ONETIME ONE Stop: 12/13/16 12:21 Last Admin: 12/13/16 12:27 Dose: 0.5 mg Hydromorphone HCl (Dilaudid) 0.5 mg IVPUSH Q1H PRN PRN Reason: Pain Sodium Chloride (Normal Saline) 1,000 mls @ 150 mls/hr IV ASDIRECTED HOLLY Last Admin: 12/13/16 10:47 Dose: 150 mls/hr Cefazolin Sodium/Dextrose 1 gm (/ Premix) 50 mls @ 100 mls/hr IV ONETIME ONE Stop: 12/13/16 15:19 Potassium Chloride/Dextrose/Sod Cl (D5 Ns With 20 Meq Kcl) 1,000 mls @ 125 mls/ hr IV ASDIRECTED HOLLY Stop: 12/13/16 23:44 Last Admin: 12/13/16 16:31 Dose: 125 mls/hr Sodium Chloride (Normal Saline) 1,000 mls @ 125 mls/hr IV ASDIRECTED HOLLY Last Admin: 12/14/16 08:26 Dose: 125 mls/hr Sodium Chloride (Normal Saline) 1,000 mls @ 125 mls/hr IV ASDIRECTED HOLLY Cefazolin Sodium/Dextrose 1 gm (/ Premix) 50 mls @ 100 mls/hr IV ONETIME ONE Stop: 12/13/16 17:29 Last Admin: 12/13/16 17:30 Dose: 100 mls/hr Iopamidol (Isovue-300 (61%)) 125 ml IVPUSH ONETIME ONE Stop: 12/13/16 10:50 Last Admin: 12/13/16 11:04 Dose: 125 ml Metoclopramide HCl (Reglan) 10 mg IVPUSH ONETIME ONE Stop: 12/13/16 10:38 Last Admin: 12/13/16 10:44 Dose: 10 mg Midazolam HCl (Versed 1 Mg/Ml) Confirm Administered Dose 2 mg .ROUTE .STK-MED ONE Stop: 12/13/16 13:43 Propofol (Diprivan 20 Ml) 400 mg .ROUTE .STK-MED ONE Stop: 12/13/16 13:01 - Exam General: no acute distress HEENT: Other (Swelling over the right maxillary area has decreased) Neck: trachea midline Lungs: Normal Respiratory Effort GI/Abdominal Exam: Soft, Non-Tender Extremities: Other (Bilateral wrist splints in place) - Problem List & Annotations (1) Facial abrasion SNOMED Code(s): 028812425 Code(s): S00.81XA - ABRASION OF OTHER PART OF HEAD, INITIAL ENCOUNTER Status: Acute Priority: Low Current Visit: Yes Onset Date: ~12/13/16 Qualifiers: Encounter type: initial encounter Qualified Code(s): S00.81XA - Abrasion of other part of head, initial encounter (2) Bilateral pneumothoraces SNOMED Code(s): 89422395 Code(s): J93.9 - PNEUMOTHORAX, UNSPECIFIED Status: Acute Priority: Low Current Visit: Yes Onset Date: ~12/13/16 (3) Closed fracture of maxillary sinus SNOMED Code(s): 956325011, 395968108 Code(s): S02.401A - MAXILLARY FRACTURE, UNSPECIFIED SIDE, INIT Status: Acute Priority: Medium Current Visit: Yes Onset Date: ~12/13/16 Qualifiers: Encounter type: initial encounter Qualified Code(s): S02.401A - Maxillary fracture, unspecified side, initial encounter for closed fracture (4) Colles' fracture of right radius, initial encounter for closed fracture SNOMED Code(s): 936611393 Code(s): S52.531A - COLLES' FRACTURE OF RIGHT RADIUS, INIT FOR CLOS FX Status: Acute Priority: Medium Current Visit: Yes Qualifiers: Encounter type: initial encounter Qualified Code(s): S52.531A - Colles' fracture of right radius, initial encounter for closed fracture (5) Contusion of liver, closed SNOMED Code(s): 79989775 Code(s): S36.112A - CONTUSION OF LIVER, INITIAL ENCOUNTER Status: Acute Priority: Low Current Visit: Yes Onset Date: ~12/13/16 Qualifiers: Encounter type: initial encounter Qualified Code(s): S36.112A - Contusion of liver, initial encounter (6) Fracture of radius, distal, left, closed SNOMED Code(s): 46023979, 706364786 Code(s): S52.502A - UNSP FRACTURE OF THE LOWER END OF LEFT RADIUS, INIT Status: Acute Priority: Medium Current Visit: Yes Onset Date: ~12/13/16 Qualifiers: Encounter type: initial encounter Fracture morphology: other extra- articular Qualified Code(s): S52.552A - Other extraarticular fracture of lower end of left radius, initial encounter for closed fracture - Problem List Review Problem List Initiated/Reviewed/Updated: Yes - My Orders Last 24 Hours: My Active Orders 12/14/16 09:29 Acetaminophen/oxyCODONE [Percocet 325-5 MG] 1 - 2 tab PO Q4H PRN 12/14/16 09:38 Admission Status [Patient Status] [ADT] Routine 12/14/16 09:47 OT Evaluation and Treatment [CONS] Routine PT Evaluation and Treatment [CONS] Routine 12/14/16 17:24 Cyclobenzaprine [Flexeril] 10 mg PO Q8HR PRN 12/14/16 18:34 Cooling Warming Measures [RC] ASDIRECTED K Pad [Heat Therapy] [OM.PC] Routine 12/14/16 Lunch Regular Diet [DIET] 12/15/16 08:51 Ready for Discharge [RC] PER UNIT ROUTINE - Assessment Assessment:: imp: His urinalysis is free of red blood cells. He is ready for discharge as he has satisfied all standard criteria and because I believe his pain can be managed with pills. I gave him the option of staying with us here in the hospital for pain management for another day but he really wanted to go home. plan: Discharge today. I told him that he would have pain in the wrist area for several weeks. I also told him that he probably will have back discomfort for a week or 2. I told him that the CT scan of his thoracic spine was negative. He will follow-up with ENT as well as orthopedic surgeons. He will also follow-up with his primary care provider for management of his muscle spasms and back pain. I discussed this with him in detail. - Plan Plan:: imp: Multiple fractures as described above -- all stable, and status post closed reduction by orthopedic surgery. CT pneumothorax is stable. Superficial abrasion right cheek. Questionable grade 1 liver injury at the level of the ligamentum teres. This is a stable lesion and can be observed. He has C7 point tenderness but his CT neck and CT T-spine are negative. All other imaging studies are negative. plan: Observation in a monitored setting. If stable overnight in the ICU I will transfer him to [facility] in the morning. Chest x-ray in the morning. CBC in the morning.
--- NOTE | 2016-12-15 09:00 | PCM.DCSUM1 ---
Discharge Summary - Hospital Course Free Text/Narrative:: The patient was admitted for observation and for pain management. He was hemodynamically stable. His urinalysis cleared. He was seen by orthopedic surgery and has his wrists reduced and had splints placed. He had significant back pain and wrist pain. This was managed initially with intravenous medications but he was converted to pills. He was ambulating and was tolerating a regular diet. His chest x-ray was stable. He had no abdominal pain. And after satisfied all discharge criteria he was discharged home to follow-up with his primary care doctor at the [facility] and to follow-up with ENT and the orthopedic surgeons. - Discharge Data Discharge Date: 12/15/16 Discharge Disposition: Home, Self-Care 01 Condition: Good - Discharge Diagnosis/Problem(s) (1) Facial abrasion SNOMED Code(s): 418544017 ICD Code: S00.81XA - ABRASION OF OTHER PART OF HEAD, INITIAL ENCOUNTER Status: Acute Priority: Low Current Visit: Yes Onset Date: ~12/13/16 Qualifiers: Encounter type: initial encounter Qualified Code(s): S00.81XA - Abrasion of other part of head, initial encounter (2) Bilateral pneumothoraces SNOMED Code(s): 68577231 ICD Code: J93.9 - PNEUMOTHORAX, UNSPECIFIED Status: Acute Priority: Low Current Visit: Yes Onset Date: ~12/13/16 (3) Closed fracture of maxillary sinus SNOMED Code(s): 959984722, 070866008 ICD Code: S02.401A - MAXILLARY FRACTURE, UNSPECIFIED SIDE, INIT Status: Acute Priority: Medium Current Visit: Yes Onset Date: ~12/13/16 Qualifiers: Encounter type: initial encounter Qualified Code(s): S02.401A - Maxillary fracture, unspecified side, initial encounter for closed fracture (4) Colles' fracture of right radius, initial encounter for closed fracture SNOMED Code(s): 993118835 ICD Code: S52.531A - COLLES' FRACTURE OF RIGHT RADIUS, INIT FOR CLOS FX Status: Acute Priority: Medium Current Visit: Yes Qualifiers: Encounter type: initial encounter Qualified Code(s): S52.531A - Colles' fracture of right radius, initial encounter for closed fracture (5) Contusion of liver, closed SNOMED Code(s): 98637975 ICD Code: S36.112A - CONTUSION OF LIVER, INITIAL ENCOUNTER Status: Acute Priority: Low Current Visit: Yes Onset Date: ~12/13/16 Qualifiers: Encounter type: initial encounter Qualified Code(s): S36.112A - Contusion of liver, initial encounter (6) Fracture of radius, distal, left, closed SNOMED Code(s): 17127044, 991725205 ICD Code: S52.502A - UNSP FRACTURE OF THE LOWER END OF LEFT RADIUS, INIT Status: Acute Priority: Medium Current Visit: Yes Onset Date: ~12/13/16 Qualifiers: Encounter type: initial encounter Fracture morphology: other extra- articular Qualified Code(s): S52.552A - Other extraarticular fracture of lower end of left radius, initial encounter for closed fracture - Patient Summary/Data Consults: Consultations 12/14/16 09:47 OT Evaluation and Treatment [CONS] Routine PT Evaluation and Treatment [CONS] Routine - Patient Instructions Diet: Usual Diet as Tolerated Activity: As Tolerated, Rest and Relax Today Driving: Do Not Drive (Until cleared by orthopedic surgery) Showering/Bathing: No Showering (Until cleared by orthopedic surgery. Try not to get the splints wet.) Notify Provider of: Increased Pain (Please see your [facility] primary care provider for increased back pain, and your orthopedic surgeon for increased wrist pain or splint tightness.) - Discharge Plan Home Medications: Home Meds . [No Known Home Meds] 12/13/16 [History] Patient Handouts: Radial Fracture, Pneumothorax, Wrist Fracture Treated With Immobilization, [id number] Forms: ED Department Discharge Referrals: PCP,None [Primary Care Provider] - - Patient Data Vitals - Most Recent: Last Vital Signs Temp 36.6 C 12/14/16 19:48 Pulse 68 12/14/16 19:47 Resp 16 12/14/16 19:47 BP 122/57 L 12/14/16 19:47 Pulse Ox 97 12/14/16 19:47 Weight - Most Recent: 71.713 kg I&O - Last 24 hours: Intake & Output 12/14/16 12/15/16 12/15/16 22:59 06:59 14:59 Intake Total 1700 1200 Output Total 450 Balance 1700 750 Lab Results - Last 24 hrs: Laboratory Results - last 24 hr 12/14/16 Range/Units 17:30 Urine Color Light yellow (Yellow) Urine Appearance Clear (Clear) Urine pH 6.5 (5.0-8.0) Ur Specific [facility] 1.020 (1.005-1.030) Urine Protein Negative (Negative) Urine Glucose (UA) Negative (Negative) Urine Ketones Negative (Negative) Urine Occult Blood Negative (Negative) Urine Nitrite Negative (Negative) Urine Bilirubin Negative (Negative) Urine Urobilinogen 1.0 (0.2-1.0) Ur Leukocyte Esterase Negative (Negative) Urine RBC 0-5 (0-5) /hpf Urine WBC 0-5 (0-5) /hpf Ur Epithelial Cells 0-5 (0-5) /hpf Urine Bacteria Rare (FEW) /hpf Urine Mucus Not seen (FEW) /hpf Med Orders - Current: Current Medications Cyclobenzaprine HCl (Flexeril) 10 mg PO Q8HR PRN PRN Reason: Muscle Spasm Last Admin: 12/14/16 17:30 Dose: 10 mg Hydromorphone HCl (Dilaudid) 0.5 mg IVPUSH Q1H PRN PRN Reason: Pain Last Admin: 12/14/16 08:22 Dose: 0.5 mg Ketorolac Tromethamine (Toradol) 30 mg IVPUSH Q6H PRN PRN Reason: Pain Stop: 12/18/16 17:00 Last Admin: 12/14/16 21:34 Dose: 30 mg Ondansetron HCl (Zofran) 4 mg IVPUSH Q4H PRN PRN Reason: Nausea Last Admin: 12/13/16 16:29 Dose: 4 mg Oxycodone/Acetaminophen (Percocet 325-5 Mg) 1 - 2 tab PO Q4H PRN PRN Reason: Pain Last Admin: 12/15/16 03:11 Dose: 2 tab Sodium Chloride (Saline Flush) 10 ml FLUSH ONETIME PRN PRN Reason: IV FLUSH Last Admin: 12/13/16 11:04 Dose: 10 ml Discontinued Medications Bupivacaine HCl (Sensorcaine-Mpf 0.5%) 10 ml INJECT ONETIME ONE Stop: 12/13/16 13:12 Last Admin: 12/13/16 13:55 Dose: 10 ml Fentanyl (Sublimaze) Confirm Administered Dose 250 mcg .ROUTE .STK-MED ONE Stop: 12/13/16 13:39 Hydromorphone HCl (Dilaudid) 1 mg IVPUSH ONETIME ONE Stop: 12/13/16 10:38 Last Admin: 12/13/16 10:46 Dose: 1 mg Hydromorphone HCl (Dilaudid) 0.5 mg IVPUSH ONETIME ONE Stop: 12/13/16 11:31 Last Admin: 12/13/16 11:40 Dose: 0.5 mg Hydromorphone HCl (Dilaudid) 0.5 mg IVPUSH ONETIME ONE Stop: 12/13/16 12:21 Last Admin: 12/13/16 12:27 Dose: 0.5 mg Hydromorphone HCl (Dilaudid) 0.5 mg IVPUSH Q1H PRN PRN Reason: Pain Sodium Chloride (Normal Saline) 1,000 mls @ 150 mls/hr IV ASDIRECTED [facility] Last Admin: 12/13/16 10:47 Dose: 150 mls/hr Cefazolin Sodium/Dextrose 1 gm (/ Premix) 50 mls @ 100 mls/hr IV ONETIME ONE Stop: 12/13/16 15:19 Potassium Chloride/Dextrose/Sod Cl (D5 Ns With 20 Meq Kcl) 1,000 mls @ 125 mls/ hr IV ASDIRECTED [facility] Stop: 12/13/16 23:44 Last Admin: 12/13/16 16:31 Dose: 125 mls/hr Sodium Chloride (Normal Saline) 1,000 mls @ 125 mls/hr IV ASDIRECTED [facility] Last Admin: 12/14/16 08:26 Dose: 125 mls/hr Sodium Chloride (Normal Saline) 1,000 mls @ 125 mls/hr IV ASDIRECTED [facility] Cefazolin Sodium/Dextrose 1 gm (/ Premix) 50 mls @ 100 mls/hr IV ONETIME ONE Stop: 12/13/16 17:29 Last Admin: 12/13/16 17:30 Dose: 100 mls/hr Iopamidol (Isovue-300 (61%)) 125 ml IVPUSH ONETIME ONE Stop: 12/13/16 10:50 Last Admin: 12/13/16 11:04 Dose: 125 ml Metoclopramide HCl (Reglan) 10 mg IVPUSH ONETIME ONE Stop: 12/13/16 10:38 Last Admin: 12/13/16 10:44 Dose: 10 mg Midazolam HCl (Versed 1 Mg/Ml) Confirm Administered Dose 2 mg .ROUTE .STK-MED ONE Stop: 12/13/16 13:43 Propofol (Diprivan 20 Ml) 400 mg .ROUTE .STK-MED ONE Stop: 12/13/16 13:01 *Q Meaningful Use (DIS) - VTE *Q VTE Criteria *Q: - Stroke *Q Stroke Criteria *Q: - AMI *Q AMI Criteria *Q:
[2016-12-15 13:09] VITALS: BP 122/58
== END 2016-12-15 11:25 | disposition home or self-care (01) | DRG 964 ==
LOC: JD.ED 10:31 → JD.ICU 14:01 → MERGE 14:01 → JD.MS 12-14 13:27
PROVIDERS: ADMIT Surgery; ATTEND Surgery
PROC: 0PSHXZZ Reposition Right Radius, External Approach (ICD-10-PCS; principal; 2016-12-13)
DX: S27.0XXA Traumatic pneumothorax, initial encounter (principal); S36.112A Contusion of liver, initial encounter; S52.531A Colles' fracture of right radius, initial encounter for closed fracture; S52.552A Other extraarticular fracture of lower end of left radius, initial encounter for closed fracture; S02.401A Maxillary fracture, unspecified side, initial encounter for closed fracture; S00.81XA Abrasion of other part of head, initial encounter; W17.89XA Other fall from one level to another, initial encounter
CPT/HCPCS: 01830; 25565; 25605; 29125; 36415; 70450; 70450-26; 71020; 71020-26; 71260; 71260-26; 72125; 72125-26; 72128; 72128-26; 72131; 72131-26; 73030-26-RT; 73030-RT; 73060-26-RT; 73060-RT; 73090-26-RT; 73090-RT; 73100-26-RT; 73100-RT; 73110-26-LT; 73110-26-RT; 73110-LT; 73110-RT; 73130-26-RT; 73130-RT; 74177; 74177-26; 80048; 80053; 81001; 83735; 85014; 85018; 85025; 86900; 86901; 96361; 96374; 96375; 96376; 97162-GP; 97166-GO; 97530-GO; 99152; 99153; 99285; 99285-25; A9270-GY; J0690; J1170; J1885; J2250; J2405; J2704; J2765; J3010; J3480; J7040; J7050; Q9967

== ENCOUNTER 2017-05-07 20:50 | Emergency (ER) | payer SELFPAY ==
[2017-05-07 21:02] VITALS: BP 125/76
--- NOTE | 2017-05-07 21:43 | EDM.PDOC ---
ED HPI GENERAL MEDICAL PROBLEM - General Chief Complaint: Upper Extremity Injury/Pain Stated Complaint: PAIN IN SIDE AND SOME CHEST PAIN Time Seen by Provider: 05/07/17 21:28 Source of Information: Reports: Patient History Limitations: Reports: No Limitations - History of Present Illness INITIAL COMMENTS - FREE TEXT/NARRATIVE: Patient is a 21 y/o male who presents to the E.D. complaining of left lateral rib pain. Pain pin point worsened with palpation. Pain started today. Unclear what caused the pain. Denies SOB, n/v, dizziness, palpitations, swelling, redness, rash, or wounds present. Left Chest Pain Score (Numeric/FACES): 6 - Related Data Allergies Allergy/AdvReac Type Severity Reaction Status Date / Time mushroom Allergy Anaphylactic Verified 05/07/17 20:59 Shock shrimp Allergy Hives Uncoded 05/07/17 20:59 Home Meds: Home Meds . [Unable to Verify Home Med List] 05/07/17 [History] Past Medical History - Past Health History Medical/Surgical History: Denies Medical/Surgical History HEENT History: Reports: Other (See Below) Other HEENT History: double vision Respiratory History: Reports: Asthma Musculoskeletal History: Reports: Fracture Other Musculoskeletal History: foot surgery for infection as a child Social & Family History - Family History Family Medical History: Noncontributory - Tobacco Use Smoking Status *Q: Never Smoker Second Hand Smoke Exposure: No - Caffeine Use Caffeine Use: Reports: None - Alcohol Use Days Per Week of Alcohol Use: 0 - Recreational Drug Use Recreational Drug Use: No - Living Situation & Occupation Living situation: Reports: Occupation: Employed Review of Systems - Review of Systems Review Of Systems: ROS reveals no pertinent complaints other than HPI. ED EXAM, GENERAL - Physical Exam Exam: See Below Exam Limited By: No Limitations General Appearance: Alert, WD/WN, No Apparent Distress Ears: Hearing Grossly Normal Nose: Normal Inspection Throat/Mouth: Normal Voice, No Airway Compromise Head: Atraumatic, Normocephalic Neck: Normal Inspection, Supple Respiratory/Chest: No Respiratory Distress, Lungs Clear, Normal Breath Sounds, No Accessory Muscle Use, Other (Tenderness along the fifth 6 intercostal space lateral border left chest. No bony abnormalities appreciated. Tenderness is pinpoint. No swelling, bruising, or wounds present.) Cardiovascular: Normal Peripheral Pulses, Regular Rate, Rhythm Peripheral Pulses: 4+: Radial (L) Neurological: Alert, Oriented, CN II-XII Intact, Normal Cognition, No Motor/ Sensory Deficits Psychiatric: Normal Affect, Normal Mood Skin Exam: Warm, Dry, Intact, Normal Color, No Rash Course - Vital Signs Last Recorded V/S: Last Vital Signs Temp 96.6 F 05/07/17 21:00 Pulse 50 L 05/07/17 21:00 Resp 16 05/07/17 21:00 BP 125/76 05/07/17 21:00 Pulse Ox 100 05/07/17 21:00 - Re-Assessments/Exams Free Text/Narrative Re-Assessment/Exam: Unclear how patient injured the affected area. He does not appear to be in acute distress. Vital signs are stable. He has no history of DVT/PE. Pain is pinpoint suggesting most likely muscular skeletal in nature reproducible with palpation. Patient met requirement for PERC rule out. Ordered a chest x-ray one view to evaluate for any bony abnormalities. 05/07/17 22:15 x-ray reviewed no acute abnormalities noted. Final interpretation pending. Will discharge patient home with instructions as documented. Departure - Departure Time of Disposition: 22:15 Disposition: Home, Self-Care 01 Condition: Good Clinical Impression: Musculoskeletal chest pain - Discharge Information Instructions: Nonspecific Chest Pain, [id number] Referrals: PCP,None [Primary Care Provider] - Forms: ED Department Discharge Additional Instructions: X-ray of the chest did not reveal any acute bony abnormalities. Unclear etiology of complaint. Most likely musculoskeletal in nature since it is reproducible with palpation. Take Tylenol and ibuprofen in alternating fashion for pain. Refrain from activities that cause worsening pain. Can apply ice to affected area as needed. Follow-up with PCP in the next 7-10 days if symptoms have not improved. Return to the ED as needed for any new or worsening symptoms.
--- NOTE | 2017-05-08 07:52 | CR ---
Chest: Portable view of the chest was obtained. Comparison: Prior chest x-ray of 04/17/15. Heart size and mediastinum are normal. Lungs are clear. Bony structures are grossly intact. Impression: 1. Nothing acute is identified on portable chest x-ray. Diagnostic code #1
== END 2017-05-07 22:35 | disposition home or self-care (01) ==
LOC: JD.ED 20:50
DX: R07.89 Other chest pain (principal); Z91.013 Allergy to seafood
CPT/HCPCS: 71010; 71010-26; 99283

== ENCOUNTER 2017-05-10 14:22 | Emergency (ER) | payer SELFPAY ==
[2017-05-10 14:53] VITALS: BP 101/69
[2017-05-10] MEDS ORDERED: Ketorolac 60 MG/2 ML SDV IM ONE (15:28)
--- NOTE | 2017-05-10 15:40 | EDM.PDOC ---
ED HPI GENERAL MEDICAL PROBLEM - General Chief Complaint: Back Pain or Injury Stated Complaint: RIB PAIN Time Seen by Provider: 05/10/17 15:07 Source of Information: Reports: Patient History Limitations: Reports: No Limitations - History of Present Illness INITIAL COMMENTS - FREE TEXT/NARRATIVE: Patient is a 21 y/o male who presents to the E.D. complaining of left lateral rib pain. Pain pin point worsened with palpation. Pain started 2 days ago. Unclear what caused the pain. He was evaluated by me at that time with CXR revealing no acute findings. Continues to deny SOB, n/v, dizziness, palpitations , swelling, redness, rash, or wounds present. Treatments TIP PRINTER: Reports: Other (see below) Other Treatments TIP PRINTER: told to take ibuprofen/tylenol, but states "I don't take pills" left side pain Pain Score (Numeric/FACES): 9 - Related Data Allergies Allergy/AdvReac Type Severity Reaction Status Date / Time mushroom Allergy Anaphylactic Verified 05/10/17 14:53 Shock shrimp Allergy Hives Uncoded 05/10/17 14:53 Home Meds: Home Meds Cyclobenzaprine [Flexeril] 10 mg PO TID PRN #9 tablet 05/10/17 [Rx] Past Medical History - Past Health History Medical/Surgical History: Denies Medical/Surgical History HEENT History: Reports: Other (See Below) Other HEENT History: double vision Respiratory History: Reports: Asthma Musculoskeletal History: Reports: Fracture Other Musculoskeletal History: foot surgery for infection as a child Social & Family History - Family History Family Medical History: Noncontributory - Tobacco Use Smoking Status *Q: Never Smoker Second Hand Smoke Exposure: No - Caffeine Use Caffeine Use: Reports: None - Alcohol Use Days Per Week of Alcohol Use: 0 - Recreational Drug Use Recreational Drug Use: No - Living Situation & Occupation Living situation: Reports: Occupation: Employed ED ROS GENERAL - Review of Systems Review Of Systems: ROS reveals no pertinent complaints other than HPI. ED EXAM, GENERAL - Physical Exam Exam: See Below Exam Limited By: No Limitations General Appearance: Alert, WD/WN, No Apparent Distress Ears: Hearing Grossly Normal Nose: Normal Inspection Head: Atraumatic, Normocephalic Neck: Normal Inspection, Supple Respiratory/Chest: No Respiratory Distress, Lungs Clear, Normal Breath Sounds, No Accessory Muscle Use, Other (Tenderness along the fifth 6 intercostal space lateral border left chest. No bony abnormalities appreciated. Tenderness is pinpoint. No swelling, bruising, or wounds present.) Cardiovascular: Normal Peripheral Pulses, Regular Rate, Rhythm, No Murmur Peripheral Pulses: 4+: Radial (L), Radial (R) GI/Abdominal: Normal Bowel Sounds, Soft, Non-Tender, No Organomegaly, No Distention Neurological: Alert, Oriented, CN II-XII Intact, Normal Cognition Psychiatric: Normal Affect, Normal Mood Skin Exam: Warm, Dry, Intact, Normal Color, No Rash Course - Vital Signs Last Recorded V/S: Last Vital Signs Temp 97.7 F 05/10/17 14:48 Pulse 64 05/10/17 14:48 Resp 18 05/10/17 14:48 BP 101/69 05/10/17 14:48 Pulse Ox 100 05/10/17 14:48 - Orders/Labs/Meds Labs: Laboratory Tests 05/10/17 05/10/17 Range/Units 15:50 15:50 Urine Color Yellow (Yellow) Urine Appearance Clear (Clear) Urine pH 7.0 (5.0-8.0) Ur Specific [place] 1.020 (1.005-1.030) Urine Protein Negative (Negative) Urine Glucose (UA) Negative (Negative) Urine Ketones Trace H (Negative) Urine Occult Blood Negative (Negative) Urine Nitrite Negative (Negative) Urine Bilirubin Negative (Negative) Urine Urobilinogen 2.0 H (0.2-1.0) Ur Leukocyte Esterase Negative (Negative) Urine RBC Not seen (0-5) /hpf Urine WBC 0-5 (0-5) /hpf Ur Epithelial Cells 0-5 (0-5) /hpf Urine Bacteria Rare (FEW) /hpf Urine Mucus Few (FEW) /hpf Urine Opiates Screen Negative (NEGATIVE) Ur Buprenorphine Scrn Negative (NEGATIVE) Ur Oxycodone Screen Negative (NEGATIVE) Urine Methadone Screen Negative (NEGATIVE) Ur Propoxyphene Screen Negative (NEGATIVE) Ur Barbiturates Screen Negative (NEGATIVE) Ur Tricyclics Screen Negative (NEGATIVE) Ur Phencyclidine Scrn Negative (NEGATIVE) Ur Amphetamine Screen Negative (NEGATIVE) U Methamphetamines Scrn Negative (NEGATIVE) U Benzodiazepines Scrn Negative (NEGATIVE) U Cocaine Metab Screen Negative (NEGATIVE) U Marijuana (THC) Screen Negative (NEGATIVE) Meds: Medications Discontinued Medications Generic Name Dose Route Start Last Admin Trade Name Freq PRN Reason Stop Dose Admin Ketorolac Tromethamine 60 mg 05/10/17 15:28 05/10/17 15:36 Toradol IM 05/10/17 15:29 60 mg ONETIME ONE Administration - Re-Assessments/Exams Free Text/Narrative Re-Assessment/Exam: Patient has not taken any medications for pain including: tylenol and or ibuprofen. Offered toradol 60mg IM for pain to which he has agreed. Will obtain UA and urine drug screen. This is to evaluate for any hematuria and to ensure patient is not taking any narcotics since he has drug seeking behaviors present. 05/10/17 16:45 UA trace ketones with urobilinogen 2.0. No concerning findings. Urine drug tox negative. 05/10/17 17:15 Reassessment, patient has had minimal changes to his discomfort with the above therapies. He drove himself no ride available. Will discharge patient home with instructions as documented with a prescription for Flexeril. Departure - Departure Time of Disposition: 17:16 Disposition: Home, Self-Care 01 Condition: Good Clinical Impression: Musculoskeletal chest pain - Discharge Information Prescriptions: Cyclobenzaprine [Flexeril] 10 mg PO TID PRN #9 tablet PRN Reason: Pain (Severe 7-10) Instructions: Muscle Strain, [id number] Referrals: Romina Hassan PA [Physician [employer]] - Forms: ED Department Discharge, ED Return to Work/School Form Additional Instructions: As discussed believes this is related to a muscle strain of the intercostal muscles of the rib or even a contusion to the left ribs. Pain was pinpoint on palpation. Chest x-ray obtained 2 days ago did not reveal any concerning findings. No rib fractures present. Treatment at this point is symptomatic care including Tylenol and ibuprofen in alternating fashion for pain. Apply ice to the affected area as needed throughout the course of the day. Do not place ice directly on the skin. Refrain from any activities that cause worsening pain. Follow-up with a primary care provider this coming Monday for reevaluation. Call and make an appointment tomorrow. Return to the ED for any new or worsening symptoms.
== END 2017-05-10 17:50 | disposition home or self-care (01) ==
LOC: JD.ED 14:22
DX: R07.89 Other chest pain (principal); Z91.013 Allergy to seafood; Z91.018 Allergy to other foods
CPT/HCPCS: 80306; 81001; 96372; 99283; J1885

== ENCOUNTER 2018-07-20 21:12 | Emergency (ER) | payer SELFPAY ==
[2018-07-20 21:25] VITALS: BP 131/65
[2018-07-20] MEDS ORDERED: Sodium Chloride 0.9% 1,000 ML IV SCH (22:00)
--- NOTE | 2018-07-20 22:26 | EDM.PDOC ---
ED HPI GENERAL MEDICAL PROBLEM - General Chief Complaint: Abdominal Pain Stated Complaint: STOMACH PAIN Time Seen by Provider: 07/20/18 21:28 Source of Information: Reports: Patient, Family - History of Present Illness INITIAL COMMENTS - FREE TEXT/NARRATIVE: This is a 22-year-old male. Yesterday he had some abdominal cramping and pain. He states he feels like his stomach is full even though he hasn't really eaten. He didn't have any nausea or vomiting no diarrhea. It seemed to ease up and then today he had some chicken wings some spaghetti and a fruit smoothie and he started having abdominal pain again. He says it's all over his abdomen and it comes and goes. When he lays down and put a heating pad on his abdomen feels better. He looked up under google and he says is suggested that he might have something growing in his stomach so he comes to the ER for evaluation. No fever no chills no cough no congestion. He still has his appendix. He still has his gallbladder. I explained to him that abdominal pain and cramping can be any number of 50 things but that we will check him over and make sure he is going to be okay. Abdomen Pain Score (Numeric/FACES): 7 - Related Data Allergies Allergy/AdvReac Type Severity Reaction Status Date / Time mushroom Allergy Anaphylactic Verified 05/10/17 14:53 Shock shrimp Allergy Hives Uncoded 05/10/17 14:53 Home Meds: Home Meds Cyclobenzaprine [Flexeril] 10 mg PO TID PRN #9 tablet 05/10/17 [Rx] Past Medical History - Past Health History Medical/Surgical History: Denies Medical/Surgical History HEENT History: Reports: Other (See Below) Other HEENT History: double vision Respiratory History: Reports: Asthma Musculoskeletal History: Reports: Fracture Other Musculoskeletal History: foot surgery for infection as a child Social & Family History - Family History Family Medical History: Noncontributory - Tobacco Use Smoking Status *Q: Never Smoker - Caffeine Use Caffeine Use: Reports: None - Recreational Drug Use Recreational Drug Use: No - Living Situation & Occupation Living situation: Reports: Occupation: Employed ED ROS GENERAL - Review of Systems Review Of Systems: See Below Constitutional: Denies: Fever, Chills HEENT: Reports: No Symptoms Respiratory: Reports: No Symptoms Cardiovascular: Reports: No Symptoms Endocrine: Reports: No Symptoms GI/Abdominal: Reports: Abdominal Pain. Denies: Diarrhea, Nausea, Vomiting : Denies: Dysuria, Frequency Musculoskeletal: Reports: No Symptoms Skin: Reports: No Symptoms Neurological: Reports: No Symptoms Psychiatric: Reports: No Symptoms Hematologic/Lymphatic: Reports: No Symptoms ED EXAM, GI/ABD - Physical Exam Exam: See Below Exam Limited By: No Limitations General Appearance: Alert, WD/WN, No Apparent Distress Eyes: Bilateral: Normal Appearance Ears: Normal External Exam Nose: Normal Inspection Throat/Mouth: Normal Inspection, Normal Lips, Normal Voice, No Airway Compromise Head: Normocephalic Neck: Supple Respiratory/Chest: No Respiratory Distress, Lungs Clear, Normal Breath Sounds Cardiovascular: Regular Rate, Rhythm, No Murmur GI/Abdominal Exam: Soft, Other (He might be slightly distended, his tenderness seems to be in the epigastric area and just above the umbilicus area, there is no guarding there is no rigidity there is no rebound, his lower quadrants are nontender on palpation, McBurney's point is nontender on palpation) Back Exam: Full Range of Motion Extremities: Normal Inspection, Normal Range of Motion Neurological: Alert, Oriented Psychiatric: Normal Affect, Normal Mood Skin Exam: Warm, Dry Course - Vital Signs Last Recorded V/S: Last Vital Signs Temp 98.2 F 07/20/18 21:22 Pulse 67 07/20/18 21:22 Resp 20 07/20/18 21:22 BP 131/65 07/20/18 21:22 Pulse Ox 94 L 07/20/18 21:22 - Orders/Labs/Meds Orders: Active Orders 24 hr Category Date Time Status Abdomen 2V AP Flat Upright [CR] Stat Exams 07/20/18 21:47 Taken Sodium Chloride 0.9% [Normal Saline] 1,000 ml Med 07/20/18 22:00 Active IV ASDIRECTED Medication Orders Sodium Chloride (Normal Saline) 1,000 mls @ 1,000 mls/hr IV ASDIRECTED HOLLY Last Admin: 07/20/18 21:56 Dose: 1,000 mls/hr Labs: Laboratory Tests 07/20/18 07/20/18 Range/Units 21:55 21:55 WBC 6.64 (4.23-9.07) K/mm3 RBC 5.01 (4.63-6.08) M/mm3 Hgb 15.4 (13.7-17.5) gm/L Hct 45.1 (40.1-51.0) % MCV 90.0 (79.0-92.2) fl MCH 30.7 (25.7-32.2) pg MCHC 34.1 (32.2-35.5) g/dl RDW Std Deviation 41.6 (35.1-43.9) fL Plt Count 241 (163-337) K/mm3 MPV 10.8 (9.4-12.3) fl Neut % (Auto) 31.2 L (34.0-67.9) % Lymph % (Auto) 51.8 (21.8-53.1) % Wood % (Auto) 8.7 (5.3-12.2) % Eos % (Auto) 7.8 H (0.8-7.0) Baso % (Auto) 0.3 (0.1-1.2) % Neut # (Auto) 2.07 (1.78-5.38) K/mm3 Lymph # (Auto) 3.44 (1.32-3.57) K/mm3 Wood # (Auto) 0.58 (0.30-0.82) K/mm3 Eos # (Auto) 0.52 (0.04-0.54) K/mm3 Baso # (Auto) 0.02 (0.01-0.08) K/mm3 Sodium 143 (136-145) mEq/L Potassium 4.0 (3.5-5.1) mEq/L Chloride 105 (98-107) mEq/L Carbon Dioxide 30 (21-32) mEq/L Anion Gap 12.0 (5-15) BUN 16 (7-18) mg/dL Creatinine 1.3 (0.7-1.3) mg/dL Est Cr Clr Drug Dosing 84.32 mL/min Estimated GFR (MDRD) > 60 (>60) mL/min BUN/Creatinine Ratio 12.3 L (14-18) Glucose 98 (74-106) mg/dL Calcium 9.0 (8.5-10.1) mg/dL Total Bilirubin 0.4 (0.2-1.0) mg/dL AST 18 (15-37) U/L ALT 20 (16-63) U/L Alkaline Phosphatase 86 (46-116) U/L C-Reactive Protein 0.2 (<1.0) mg/dL Total Protein 7.7 (6.4-8.2) g/dl Albumin 4.0 (3.4-5.0) g/dl Globulin 3.7 gm/dL Albumin/Globulin Ratio 1.1 (1-2) Lipase 93 (73-393) U/L Meds: Medications Generic Name Dose Route Start Last Admin Trade Name Kenroy PRN Reason Stop Dose Admin Sodium Chloride 1,000 mls @ 1,000 mls/hr 07/20/18 22:00 07/20/18 21:56 Normal Saline IV 1,000 mls/hr ASDIRECTED HOLLY Administration - Radiology Interpretation Free Text/Narrative:: Flat and upright shows large amount of stool in the colon. - Re-Assessments/Exams Free Text/Narrative Re-Assessment/Exam: 07/20/18 23:49 I spoke to the patient regarding the x-ray results and showed him the x-rays. I explained to him that his blood work was all normal including a CBC CMP C reactive protein. I will give him a bottle of mag citrate with instructions on how to take it and he needs to drink more water. Departure - Departure Time of Disposition: 23:50 Disposition: Home, Self-Care 01 Condition: Good Clinical Impression: Obstipation, Abdominal cramps - Discharge Information *PRESCRIPTION DRUG MONITORING PROGRAM REVIEWED*: Not Applicable *COPY OF PRESCRIPTION DRUG MONITORING REPORT IN PATIENT JUAN M: Not Applicable Instructions: Constipation, Adult Referrals: PCP,None [Primary Care Provider] - Forms: ED Department Discharge Additional Instructions: When you get home drink one half bottle of mag citrate, then started drinking lots of fluids over the next 12 hours drink at least 48 ounces of water, if you do not start having bowel movements in 12 hours then drink the other half bottle of mag citrate, continue to drink lots of fluids over the next couple of days, do not eat any hard to digest foods such as meats, greasy foods, vegetables, stay on easy to digest foods such as fruits and bananas crackers yogurt, follow-up with your family doctor next week if needed - My Orders Last 24 Hours: My Active Orders 07/20/18 21:47 Abdomen 2V AP Flat Upright [CR] Stat 07/20/18 22:00 Sodium Chloride 0.9% [Normal Saline] 1,000 ml IV ASDIRECTED - Assessment/Plan Last 24 Hours: My Active Orders 07/20/18 21:47 Abdomen 2V AP Flat Upright [CR] Stat 07/20/18 22:00 Sodium Chloride 0.9% [Normal Saline] 1,000 ml IV ASDIRECTED
[2018-07-20] MEDS ORDERED: Magnesium Citrate Solution 296 ML Bottle PO ONE (23:52)
--- NOTE | 2018-07-21 09:39 | CR ---
Abdomen: Supine and upright views of the abdomen were obtained. Comparison: No previous study. Bowel gas pattern is normal. No abnormal calcifications or soft tissue abnormality is seen. Bony structures are unremarkable. Impression: 1. Unremarkable two-view abdominal x-ray. Diagnostic code #1
== END 2018-07-20 23:58 | disposition home or self-care (01) ==
LOC: JD.ED 21:12
DX: K59.00 Constipation, unspecified (principal); Z91.018 Allergy to other foods; Z91.013 Allergy to seafood
CPT/HCPCS: 36415; 74019; 80053; 83690; 85025; 86140; 99284; A9270; J7040; 99283